=== PATIENT | female | born 1960 | race Caucasian/White ===

== ENCOUNTER 2016-06-23 16:34 | Emergency (ER) | payer OTHER, MEDICAID ==
[2016-06-23] MEDS ORDERED: IBUPROFEN 600 MG TABLET PO STA (18:32)
[2016-06-23] MEDS ORDERED: IBUPROFEN 600 MG TABLET PO ONE (18:38)
== END 2016-06-23 18:52 | disposition home or self-care (01) ==
DX: S46.912A Strain of unspecified muscle, fascia and tendon at shoulder and upper arm level, left arm, initial encounter (principal); X50.1XXA Overexertion from prolonged static or awkward postures, initial encounter; Y93.F2 Activity, caregiving, lifting; Y92.129 Unspecified place in nursing home as the place of occurrence of the external cause; Y99.0 Civilian activity done for income or pay; I10 Essential (primary) hypertension; E11.9 Type 2 diabetes mellitus without complications; Z79.84 Long term (current) use of oral hypoglycemic drugs
CPT/HCPCS: 1040M; 99282; 99283; A9270

== ENCOUNTER 2017-11-02 16:12 | Observation (INO) | payer MEDICAID, OTHER ==
--- NOTE | 2017-11-02 17:03 | ED Physician Documentation ---
PD HPI HEADACHE - Stated complaint Stated Complaint: HEADACHE/DIZZY/N/V - Chief complaint Chief Complaint: Neuro - History obtained from History obtained from: Patient - History of Present Illness Timing - onset: Today Timing - onset during: Light activity (felt headache and light headed this morning, worse with activity and standing up. [place] generally weak. Nauseated and had emesis when got to work that was cofeeground/maroon. 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 (feeling more of a pressure headache.) Location: Front Quality: Throbbing, Tightness. No: Thunderclap Associated symptoms: Nausea, Vomiting (she did have emesis of coffeeground material today and then another emesis similar to brick red color.), Weakness. No: Fever, Stiff neck, Numbness, Syncope Worsened by: No: Light, Noise Contributing factors: Other (her coworker found her BP to be low at 60 systolic. ). No: Anticoagulated, Recent illness, Trauma Similar symptoms before: Has not had sx before Recently seen: Not recently seen (no recent change in meds) Review of Systems Constitutional: reports: Fatigue (today). denies: Fever, Chills, Myalgias Nose: denies: Rhinorrhea / runny nose, Congestion Throat: denies: Sore throat Cardiac: denies: Chest pain / pressure, Palpitations Respiratory: denies: Dyspnea, Cough GI: reports: Nausea, Vomiting, Hematemesis. denies: Abdominal Pain, Abdominal Swelling, Constipation, Diarrhea, Bloody / black stool : denies: Dysuria, Frequency Skin: denies: Rash, Lesions Neurologic: reports: Generalized weakness. denies: Focal weakness, Numbness, Difficulty speaking, Near syncope Psychiatric: denies: Anxiety Endocrine: denies: Weight loss, Weight gain Immunocompromised: denies: Immunocompromised PD PAST MEDICAL HISTORY - Past Medical History Cardiovascular: Hypertension Respiratory: None Endocrine/Autoimmune: Type 2 diabetes GI: None PIPE LAYER: None : None HEENT: None Psych: None Musculoskeletal: None Derm: None - Past Surgical History Past Surgical History: Yes - Present Medications Home Medications: Ambulatory Orders Medication Instructions Recorded Confirmed Lisinopril 10 mg PO DAILY 08/17/14 06/23/16 Simvastatin [Zocor] 40 mg PO DAILY 08/17/14 06/23/16 metFORMIN [Glucophage] 500 mg PO BID 01/27/15 06/23/16 Naproxen 375 mg PO BID #20 tablet 08/26/15 06/23/16 - Allergies Allergies/Adverse Reactions: Allergies Allergy/AdvReac Type Severity Reaction Status Date / Time influenza virus vaccine, Allergy Severe Anaphylaxis Verified 08/26/15 19:14 specific [influenza virus vacc,specific] - Social History Does the pt smoke?: No Smoking Status: Never smoker Does the pt drink ETOH?: No Does the pt have substance abuse?: No - Immunizations Immunizations are current?: Yes - POLST Patient has POLST: No PD ED PE NORMAL - Vitals Vital signs reviewed: Yes (BP initially low, and improved with IV fluids. ) - General General: Alert and oriented X 3, No acute distress, Well developed/nourished - HEENT HEENT: Ears normal, Moist mucous membranes, Pharynx benign - Neck Neck: Supple, no meningeal sign, No adenopathy - Cardiac Cardiac: No murmur. No: RRR (regular but tachycardic. ) - Respiratory Respiratory: Clear bilaterally - Abdomen Abdomen: Normal bowel sounds, Soft, Non tender, Non distended, No organomegaly, Other (emesis she had earlier IT SUPPORT MANAGER was brought with her and it is coffeeground to brick colored and gastroccult very positive. ) - Female Female : Deferred - Rectal Rectal: Deferred - Back Back: No CVA TTP - Derm Derm: Warm and dry. No: Normal color (mild pallor) - Extremities Extremities: No deformity, No tenderness to palpate, Normal ROM s pain, No edema - Neuro Neuro: Alert and oriented X 3, No motor deficit, Normal speech Eye Opening: Spontaneous Motor: Obeys Commands Verbal: Oriented GCS Score: 15 - Psych Psych: Normal mood, Normal affect Results - Vitals Vitals: Vital Signs - 24 hr 11/02/17 11/02/17 11/02/17 16:29 17:34 18:18 Temperature 35.7 C L Heart Rate 107 H 88 92 Heart Rate [ Sitting] Heart Rate [ Standing] Respiratory 18 14 19 Rate Blood Pressure 75/59 L 95/70 89/58 L Blood Pressure [Sitting] Blood Pressure [Standing] O2 Saturation 100 98 100 06/19/18 06/19/18 06/19/18 18:33 18:35 19:03 Temperature Heart Rate 88 102 H 102 H Heart Rate [ Sitting] Heart Rate [ Standing] Respiratory 15 15 15 Rate Blood Pressure 94/62 119/67 Blood Pressure [Sitting] Blood Pressure [Standing] O2 Saturation 98 99 11/02/17 11/02/17 19:37 19:53 Temperature Heart Rate 102 H Heart Rate [ 107 H Sitting] Heart Rate [ 108 H Standing] Respiratory 18 Rate Blood Pressure 95/57 L Blood Pressure 96/64 [Sitting] Blood Pressure 86/60 L [Standing] O2 Saturation 100 Oxygen O2 Source Room air - Labs Labs: Laboratory Tests 11/02/17 11/02/17 11/02/17 16:45 16:45 16:45 WBC 12.2 H RBC 4.52 Hgb 9.9 L Hct 30.8 L MCV 68.0 L MCH 21.9 L MCHC 32.3 RDW 16.0 H Plt Count 285 MPV 8.0 Neut # (Auto) 10.8 H Lymph # (Auto) 0.4 L Catron # (Auto) 0.8 Eos # (Auto) 0.1 Baso # (Auto) 0.0 Absolute Nucleated RBC 0.00 Nucleated RBC % 0.0 Platelet Estimate NORMAL (130-450,000) Platelet Morphology NORMAL APPEARANCE RBC Morph Micro Appear 1+ HYPOCHROMASIA D-Dimer Sodium 132 L Potassium 6.6 H* Chloride 102 Carbon Dioxide 21 Anion Gap 9.0 BUN 65 H Creatinine 1.9 H Estimated GFR (MDRD) 27 L Glucose 323 H Calcium 8.5 Total Bilirubin 0.6 AST 24 ALT 19 Alkaline Phosphatase 74 Troponin I B-Natriuretic Peptide Total Protein 6.8 Albumin 3.9 Globulin 2.9 Albumin/Globulin Ratio 1.3 Lipase 36 Blood Type AB POSITIVE Blood Type Recheck Antibody Screen NEGATIVE 11/02/17 11/02/17 11/02/17 16:45 16:45 16:45 WBC RBC Hgb Hct MCV MCH MCHC RDW Plt Count MPV Neut # (Auto) Lymph # (Auto) Catron # (Auto) Eos # (Auto) Baso # (Auto) Absolute Nucleated RBC Nucleated RBC % Platelet Estimate Platelet Morphology RBC Morph Micro Appear D-Dimer < 200.0 L Sodium Potassium Chloride Carbon Dioxide Anion Gap BUN Creatinine Estimated GFR (MDRD) Glucose Calcium Total Bilirubin AST ALT Alkaline Phosphatase Troponin I < 0.04 B-Natriuretic Peptide 16 Total Protein Albumin Globulin Albumin/Globulin Ratio Lipase Blood Type Blood Type Recheck Antibody Screen 11/02/17 11/02/17 18:30 18:30 WBC RBC Hgb Hct MCV MCH MCHC RDW Plt Count MPV Neut # (Auto) Lymph # (Auto) Catron # (Auto) Eos # (Auto) Baso # (Auto) Absolute Nucleated RBC Nucleated RBC % Platelet Estimate Platelet Morphology RBC Morph Micro Appear D-Dimer Sodium Potassium 5.0 Chloride Carbon Dioxide Anion Gap BUN Creatinine Estimated GFR (MDRD) Glucose Calcium Total Bilirubin AST ALT Alkaline Phosphatase Troponin I B-Natriuretic Peptide Total Protein Albumin Globulin Albumin/Globulin Ratio Lipase Blood Type Blood Type Recheck AB POSITIVE Antibody Screen - Rads (name of study) head CT Radiology: Prelim report reviewed (normal) PD MEDICAL DECISION MAKING - ED course Complexity details: reviewed results, re-evaluated patient, considered differential (initial presentation was of headache, and this improved with IV fluids with improved BP. Main issue is really the cause of the hypotention, in my view of it. No signs of cardiovascular process. She did have coffeeground emesis but no diarrhea. Consider acute UGI bleed as most likely. ), d/w patient , d/w lactation consultant (Kati Arroyo, neighborhood conservation officer for surgery, who felt patient to be having IV fluids, repeat vitals and blood count and he would scope her tomorrow. Defers to Hospitalist. ), other (s/w Hospitalist, who will see patient in the ER. ) - Sepsis Event Vital Signs: Vital Signs - 24 hr 11/02/17 11/02/17 11/02/17 16:29 17:34 18:18 Temperature 35.7 C L Heart Rate 107 H 88 92 Heart Rate [ Sitting] Heart Rate [ Standing] Respiratory 18 14 19 Rate Blood Pressure 75/59 L 95/70 89/58 L Blood Pressure [Sitting] Blood Pressure [Standing] O2 Saturation 100 98 100 11/02/17 11/02/17 11/02/17 18:33 18:35 19:03 Temperature Heart Rate 88 102 H 102 H Heart Rate [ Sitting] Heart Rate [ Standing] Respiratory 15 15 15 Rate Blood Pressure 94/62 119/67 Blood Pressure [Sitting] Blood Pressure [Standing] O2 Saturation 98 99 11/02/17 11/02/17 19:37 19:53 Temperature Heart Rate 102 H Heart Rate [ 107 H Sitting] Heart Rate [ 108 H Standing] Respiratory 18 Rate Blood Pressure 95/57 L Blood Pressure 96/64 [Sitting] Blood Pressure 86/60 L [Standing] O2 Saturation 100 Oxygen O2 Source Room air Departure - Departure Disposition: ED Place in Observation Clinical Impression: Upper GI bleed, Orthostatic headache, Renal insufficiency Hypotension Qualifiers: Hypotension type: orthostatic hypotension Qualified Code(s): I95.1 - Orthostatic hypotension Condition: Stable Record reviewed to determine appropriate education?: Yes Discharge Date/Time: 11/02/17 20:46
--- NOTE | 2017-11-02 17:22 | CT Report ---
Procedure Date: 11/02/2017 Accession Number: [id number] / [id number] Procedure: CT - Head W/O CPT Code: FULL RESULT: EXAM: CT HEAD WITHOUT CONTRAST EXAM DATE: 11/02/2017 04:59 PM. CLINICAL HISTORY: Headache (severe). COMPARISON: None. TECHNIQUE: Multiaxial CT images were obtained from the foramen magnum to the vertex. Reformats: Coronal. IV contrast: None. In accordance with CT protocol optimization, one or more of the following dose reduction techniques were utilized for this exam: automated exposure control, adjustment of mA and/or KV based on patient size, or use of iterative reconstructive technique. FINDINGS: Parenchyma: No intraparenchymal hemorrhage. No evidence of mass, midline shift, or CT findings of infarction. Chaves-white differentiation is distinct. Extraaxial Spaces: Normal for age. No subdural or epidural collections identified. Ventricles: Normal in size and position. Sinuses and Orbits: Imaged paranasal sinuses, orbits, and mastoids show no significant abnormality. Bones: No evidence of fracture or calvarial defect. Other: None. IMPRESSION: Normal head CT. RADIA
[2017-11-02] MEDS ORDERED: SODIUM CHLORIDE 0.9% 1,000 ML IV ONE ×3 (17:32→19:36)
[2017-11-02] MEDS ORDERED: ACETAMINOPHEN 1,000 MG/100 ML 100 ML IV STA (17:32)
[2017-11-02] MEDS ORDERED: ONDANSETRON 4 MG/2 ML VIAL IVP STA (17:32)
[2017-11-02] MEDS ORDERED: FAMOTIDINE 20 MG/50 ML 50 ML IV ONE (17:32)
[2017-11-02 17:42] LABS: BASOPHILS % (AUTO) 0.4 %; EOSINOPHILS # (AUTO) 0.1 10^3/uL (0.0-0.7); EOSINOPHILS % (AUTO) 0.8 %; HGB - HEMOGLOBIN 9.9 g/dL (12.0-16.0); LYMPHOCYTES # (AUTO) 0.4 10^3/uL (1.5-3.5); LYMPHOCYTES % (AUTO) 3.3 %; MEAN CORPUSCULAR HEMOGLOBIN 21.9 pg (27.0-31.0); MEAN CORPUSCULAR HGB CONC 32.3 g/dL (32.0-36.0); MONOCYTES # (AUTO) 0.8 10^3/uL (0.0-1.0); MONOCYTES % (AUTO) 6.6 %; NEUTROPHILS # (AUTO) 10.8 10^3/uL (1.5-6.6); NEUTROPHILS % (AUTO) 88.9 %; PLT - PLATELET COUNT 285 10^3/uL (130-450); RED BLOOD COUNT 4.52 10^6/uL (4.20-5.40); WHITE BLOOD COUNT 12.2 x10^3/uL (4.8-10.8)
[2017-11-02 17:56] LABS: ALBUMIN 3.9 g/dL (3.2-5.5); ALBUMIN/GLOBULIN RATIO 1.3 (1.0-2.2); BILIRUBIN,TOTAL 0.6 mg/dL (0.2-1.0); CALCIUM 8.5 mg/dL (8.5-10.3); CREATININE 1.9 mg/dL (0.4-1.0); TOTAL PROTEIN 6.8 g/dL (6.7-8.2)
[2017-11-02] MEDS ORDERED: ALBUTEROL NEB 2.5 MG/3 ML INH STA (18:01)
[2017-11-02] MEDS ORDERED: SODIUM BICARBONATE ABBOJECT 50 MEQ/50 ML SYRINGE IVP STA (18:01)
[2017-11-02] MEDS ORDERED: INSULIN REGULAR HUMAN 100 UNIT/1 ML 10 ML MDV IVP STA (18:01)
[2017-11-02 18:46] LABS: PLATELET ESTIMATE, MANUAL NORMAL (130-450,000) (NORMAL); PLATELET MORPHOLOGY NORMAL APPEARANCE (NORMAL)
[2017-11-02] MEDS ORDERED: PANTOPRAZOLE 40 MG VIAL IVP STA (19:37)
[2017-11-02] MEDS ORDERED: MORPHINE 2 MG/ML SYRINGE IVP PRN (20:01)
[2017-11-02] MEDS ORDERED: metFORMIN 500 MG TABLET PO SCH (21:00)
[2017-11-02] MEDS ORDERED: FAMOTIDINE 20 MG/50 ML 50 ML IV SCH (21:00)
[2017-11-02] MEDS: D5.45NS W/20 MEQ KCL 1,000 ML IV SCH (22:33)
--- NOTE | 2017-11-02 23:37 | HISTORY & PHYSICAL EXAMINATION ---
Chief Complaint - Chief Complaint Chief Complaint: Headache, nausea, vomiting History of Present Illness - Admitted From Admitted From:: home - History Obtained From History obtained from: patient, ED physician - History of Present Illness HPI Comment/Other: Ms. Karen Merino is a very pleasant 56-year-old female who has a history of waking up this morning with bad headache. She took Tylenol but this did not work. The patient was also nauseous but initially was able to keep her vomiting. Unfortunately she did become sick to her stomach and vomited a few hours later. She came to the emergency department for workup and was subsequently found to have an upper GI bleed as evidenced by coffee-ground emesis. She will be admitted to the hospital in observation bed, correct her electrolyte abnormalities, and she will undergo endoscopy with Dr. Dav Arroyo tomorrow. 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 Living arrangement: At home Living Situation: With family Social History Notes: The patient lives with her daughter - Substance History Use: Uses substance without health or social issues: Alcohol Abuse: Recurrent use of substance despite neg consequences: NONE Dependence: Experiences withdrawal or developed tolerances: NONE - POLST Patient has POLST: No POLST Status: Full Code Meds/Allgy - Home Medications Home Medications: Ambulatory Orders Medication Instructions Recorded Confirmed Lisinopril 10 mg PO DAILY 08/17/14 06/23/16 Simvastatin [Zocor] 40 mg PO DAILY 08/17/14 06/23/16 metFORMIN [Glucophage] 500 mg PO BID 01/27/15 06/23/16 Naproxen 375 mg PO BID #20 tablet 08/26/15 06/23/16 - Allergies Allergies/Adverse Reactions: Allergies Allergy/AdvReac Type Severity Reaction Status Date / Time influenza virus vaccine, Allergy Severe Anaphylaxis Verified 08/26/15 19:14 specific [influenza virus vacc,specific] Review of Systems - Constitutional Constitutional: reports: Fatigue, Poor appetite. denies: Fever, Chills, Night sweats - Eyes Eyes: denies: Pain, Irritation, Amaurosis, Blurred vision, Dipolpia - Ears, Nose & Throat Ears, Nose & Throat: denies: Ear pain, Hearing loss, Hearing aids, Tinnitus, Vertigo, Nasal pain, Nasal discharge - Cardiovascular Cariovascular: denies: Irregular heart rate, Palpitations, Chest pain, Edema, Syncope - Respiratory Respiratory: denies: Cough, Sputum production, Wheezing, Snoring - Gastrointestinal Gastrointestinal: reports: Nausea, Vomiting. denies: Abdominal pain, Abdominal distention, Constipation, Diarrhea, Change in bowel habits, Rectal bleeding - Genitourinary Genitourinary: denies: Dysuria, Frequency, Urgency, Hematuria - Musculoskeletal Musculoskeletal: denies: Muscle pain, Back pain, Muscle aches, Stiffness - Integumentary Integumentary: denies: Rash, Pruritis, Lesions, Dryness - Neurological Neurological: reports: Headache - Psychiatric Psychiatric: denies: Depression, Anxiety, Suicidal - Endocrine Endocrine: denies: Polyuria, Polydypsia, Polyphagia - Hematologic/Lymphatic Hematologic/Lymphatic: denies: Anemia, Bruising, Petechiae, Lymphadenopathy - All Other Systems All Other Systems: reports: Reviewed and negative Exam - Vital Signs Reviewed Vital Signs: Yes Vital Signs: Vital Signs x48h Temp Pulse Pulse Resp BP BP Pulse Ox 11/02/17 20:49 36.4 C L 92 15 88/47 L 99 11/02/17 20:43 93 18 94/59 L 95 11/02/17 20:02 97 19 107/66 98 - Physical Exam General Appearance: positive: No acute distress, Alert Eyes Bilateral: positive: Normal inspection, PERRL, EOMI, No lid inflammation, Conjunctivae nml, No scleral icterus ENT: positive: ENT inspection nml, Pharynx nml, No signs of dehydration Neck: positive: Nml inspection, Thyroid nml, No JVD, Trachea midline. negative : Thyromegaly Respiratory: positive: Chest non-tender, No respiratory distress, Breath sounds nml. negative: Wheezes, Rales, Rhonchi Cardiovascular: positive: Regular rate & rhythm, No murmur, No gallop Peripheral Pulses: positive: 1+ Abdomen: positive: Non-tender, No organomegaly, Nml bowel sounds, No distention. negative: Guarding, Rebound Back: positive: Nml inspection. negative: CVA tenderness (R), CVA tenderness (L ) Skin: positive: Color nml, No rash, Warm, Dry. negative: Cyanosis Extremities: positive: Non-tender, Full ROM, Nml appearance, No pedal edema Neurologic/Psychiatric: positive: Oriented x3, CN's nml (2-12), Motor nml, Sensation nml, Mood/affect nml Conclusion/Plan - Problem List (1) Upper GI bleed Conclusion/Plan: As evidenced by coffee-ground emesis and Hemoccult testing, the patient will undergo endoscopy with Dr. Dav Arroyo tomorrow.She is currently n.p.o. (2) History of hypertension Conclusion/Plan: The patient's blood pressure has been on the low side since her admission, but is 101/58 this morning. We have restarted the patient on her home antihypertensives and will continue to monitor. (3) Type 2 diabetes mellitus Conclusion/Plan: The Patient has a history of type 2 diabetes but only takes metformin 500 mg twice a day. We will restart her on that dosage and will monitor her glucose levels. If necessary we will put her on a sliding scale. (4) Hyperlipidemia Conclusion/Plan: We will restart the patient on her simvastatin. (5) Anemia Conclusion/Plan: The patient's hemoglobin is 9.9. On her last admission hemoglobin was 8.0. We will monitor her closely and obtain iron studies as her red blood cells are microcytic.We will also check her B12 and folate levels as she has a large RDW.Of note is that the patient has an elevated creatinine and this may be renal based. Qualifiers: Other causes of anemia: enzyme D/O, other - Lab Results Lab results reviewed: Yes Fish Bones: 11/02/17 16:45 11/02/17 18:30 - Diagnostic Imaging Results Diagnostic Imaging Results: positive: Final report reviewed Diagnostic Imaging Results Comments: EXAM: CT HEAD WITHOUT CONTRAST EXAM DATE: 11/02/2017 04:59 PM. CLINICAL HISTORY: Headache (severe). COMPARISON: None. TECHNIQUE: Multiaxial CT images were obtained from the foramen magnum to the vertex. Reformats: Coronal. IV contrast: None. In accordance with CT protocol optimization, one or more of the following dose reduction techniques were utilized for this exam: automated exposure control, adjustment of mA and/or KV based on patient size, or use of iterative reconstructive technique. FINDINGS: Parenchyma: No intraparenchymal hemorrhage. No evidence of mass, midline shift, or CT findings of infarction. Chaves-white differentiation is distinct. Extraaxial Spaces: Normal for age. No subdural or epidural collections identified. Ventricles: Normal in size and position. Sinuses and Orbits: Imaged paranasal sinuses, orbits, and mastoids show no significant abnormality. Bones: No evidence of fracture or calvarial defect. Other: None. IMPRESSION: Normal head CT. Core Measures - Anticipated LOS I expect patient to be DC'd or transferred within 96 hours.: Yes - DVT/VTE - Prophylaxis VTE/DVT Device ordered at admit?: Yes
[2017-11-03 06:51] LABS: CALCIUM 7.3 mg/dL (8.5-10.3); CREATININE 1.2 mg/dL (0.4-1.0)
[2017-11-03 07:00] LABS: % IRON SATURATION 9 % (20-50); IRON 17 ug/dL (28-170); TOTAL IRON BINDING CAPACITY 186 ug/dL (250-450); TRANSFERRIN 133 mg/dL (192-382)
[2017-11-03 07:04] LABS: HGB - HEMOGLOBIN 8.1 g/dL (12.0-16.0); MEAN CORPUSCULAR HEMOGLOBIN 22.1 pg (27.0-31.0); MEAN CORPUSCULAR HGB CONC 32.4 g/dL (32.0-36.0); MEAN CORPUSCULAR VOLUME 68.3 fL (81.0-99.0); MEAN PLATELET VOLUME 7.1 fL (7.9-10.8); RED BLOOD COUNT 3.66 10^6/uL (4.20-5.40); RED CELL DISTRIBUTION WIDTH 16.3 % (12.0-15.0); WHITE BLOOD COUNT 5.2 x10^3/uL (4.8-10.8)
--- NOTE | 2017-11-03 08:49 | CONSULTATION NOTE ---
Referring Provider Name of Referring Provider:: Dr. Corral Consult Date: 11/03/17 Chief Complaint - Chief Complaint Chief Complaint: ACOSTA and coffee ground hematemesis History of Present Illness - Admitted From Admitted From:: ER - History Obtained From Records Reviewed: yes History obtained from: pt Exam Limitations: none - History of Present Illness HPI Comment/Other: 56 yo female in her usual state of health until yesterday morning when she note a progressively worsening headache, followed by dizziness, and then an episode of coffee ground hematemesis while at work. There has been no abdominal pain, fever, chills, change in bowel habits, melena or hematochezia. She reports a prior hx of what she was told was an ulcer many years ago which responded to medication. No prior GI evaluations. Rare use of NSAIDs for headache, rare use of alcohol. No tobacco use. Neg FH GI tumors. No recent wt loss. She presented to the ER where evaluation was notable for hypotension and anemia. She responded to fluid resuscitation with several liters of crystalloid, and remained stable therafter. She had no further emesis. Head CT was neg. She feels much better today, with no recurrent sx and no bm's. 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 denies : Colonoscopy, EGD - Family & Social History Family History: Mother: , CVA/TIA, Father: , COPD/Emphysema, Other family: Diabetes, Type 2 (Multiple family members) Family History Comment/Other: Patient states there is no known history of heart disease or cancer in the family but there is a history of diabetes. Neg FH GI tumors. Living arrangement: At home Living Situation: With family Social History Notes: The patient lives with her daughter - Substance History Use: Uses substance without health or social issues: Alcohol (minimal use, less than once a month) Abuse: Recurrent use of substance despite neg consequences: NONE Dependence: Experiences withdrawal or developed tolerances: NONE - POLST Patient has POLST: No POLST Status: Full Code Meds/Allgy - Home Medications Home Medications: Ambulatory Orders Medication Instructions Recorded Confirmed Lisinopril 10 mg PO DAILY 08/17/14 06/23/16 Simvastatin [Zocor] 40 mg PO DAILY 08/17/14 06/23/16 metFORMIN [Glucophage] 500 mg PO BID 01/27/15 06/23/16 - Allergies Allergies/Adverse Reactions: Allergies Allergy/AdvReac Type Severity Reaction Status Date / Time influenza virus vaccine, Allergy Severe Anaphylaxis Verified 08/26/15 19:14 specific [influenza virus vacc,specific] Review of Systems - Constitutional Constitutional: denies: Fever, Chills, Poor appetite, Weight loss - Cardiovascular Cariovascular: reports: Lightheadedness (yesterday). denies: Irregular heart rate, Palpitations, Chest pain, Exertional dyspnea - Respiratory Respiratory: denies: Cough, Sputum production, Wheezing, Hemoptysis, SOB at rest , SOB with exertion - Gastrointestinal Gastrointestinal: reports: Nausea, Vomiting, Coffee grounds emesis. denies: Abdominal pain, Abdominal distention, Constipation, Diarrhea, Change in bowel habits, Rectal bleeding, Black stools, Bloody stools, Michael blood emesis, Reflux /heartburn, Bloating, Poor appetite - Hematologic/Lymphatic Hematologic/Lymphatic: denies: Anemia, Bruising, Petechiae, Blood clots, Bleeding tendencies - All Other Systems All Other Systems: reports: Reviewed and negative Exam - Vital Signs Reviewed Vital Signs: Yes Vital Signs: Vital Signs x48h Temp Pulse Resp BP Pulse Ox 11/03/17 08:43 36.8 C 86 16 119/52 L 99 11/03/17 05:11 36.8 C 83 18 101/58 L 97 - Physical Exam General Appearance: positive: No acute distress, Alert Eyes Bilateral: positive: Normal inspection, Conjunctivae nml, No scleral icterus ENT: positive: ENT inspection nml, Pharynx nml, No signs of dehydration Neck: positive: Nml inspection, No JVD. negative: Lymphadenopathy (R), Lymphadenopathy (L) Respiratory: positive: Chest non-tender, No respiratory distress, Breath sounds nml. negative: Wheezes, Rales, Rhonchi Cardiovascular: positive: Regular rate & rhythm, No murmur, No gallop Abdomen: positive: Non-tender, No organomegaly, Nml bowel sounds, No distention. negative: Guarding, Rebound, Hepatomegaly, Splenomegaly, Mass Skin: positive: Color nml, Warm, Dry. negative: Cyanosis Extremities: positive: Non-tender, No pedal edema, Calf tenderness (mild, on right) Neurologic/Psychiatric: positive: Oriented x3 Conclusion/Plan - Diagnosis Diagnosis: 1. Hematemesis; single episode, with no clinical signs of active bleeding at present; ddx includes PUD, gastritis, H. pylori, UGI neoplasm, GERD , diulafoy lesion, varices, etc. 2. Anemia, likely due to iron deficiency, suggest possible ongoing problem with occult gi bleeding, from upper or lower gi sources. - Plan Plan: EGD today. PAR conf with pt. If unremarkable, pt should also have a colonoscopy. Empiric treatment with PPI therapy is warranted pending EGD. - Lab Results Lab results reviewed: Yes Fish Bones: 11/03/17 06:30 11/03/17 06:30 Other Lab Results: LFTs nl; iron studies suggest iron deficiency anemia - EKG Results EKG Interpreted Independently: No EKG Findings: Sinus tach with VR 100
[2017-11-03 09:24] LABS: INR 1.2 (0.8-1.2); PT - PROTHROMBIN TIME 13.5 secs (9.9-12.6)
[2017-11-03 09:40] LABS: HB2 TOTAL 8.6 g/dL; HEMOGLOBIN A1C 0.45 g/dL; HEMOGLOBIN A1C % 6.9 % (4.6-6.2)
[2017-11-03] MEDS: SODIUM CHLORIDE FLUSH 0.9% 10 ML SYRINGE IVP SCH ×3 (09:49→18:33)
[2017-11-03] MEDS: FERROUS SULFATE 325 MG TABLET PO SCH ×2 (09:50→18:33)
[2017-11-03] MEDS: D5.45NS W/20 MEQ KCL 1,000 ML IV SCH (09:50)
[2017-11-03] MEDS: POLYETHYLENE GLYCOL 3350 17 GM PACKET PO SCH (09:51)
[2017-11-03] MEDS: LISINOPRIL 5 MG TABLET PO SCH (09:51)
[2017-11-03] MEDS: PANTOPRAZOLE 40 MG VIAL IVP SCH ×2 (09:54→21:02)
[2017-11-03] MEDS: SODIUM CHLORIDE FLUSH 0.9% 10 ML SYRINGE IVP PRN ×2 (09:55→21:02)
[2017-11-03] MEDS: INSULIN REGULAR HUMAN 100 UNIT/1 ML 10 ML MDV SUBQ SCH ×2 (13:08→19:19)
--- NOTE | 2017-11-03 14:33 | PROVIDER PROGRESS NOTE ---
Subjective - Prog Note Date Prog Note Date: 11/03/17 - Subjective Pt reports feeling: No change Subjective: pt report once of vomiting of blood in her work place yesterday, no other complaints. No chest pain, SOB, dizziness, fever, chill, cough. No abdominal pain, N/V/D. pt will have EGD on this afternoon, will follow up Current Medications - Current Medications Current Medications: Active Medications Ferrous Sulfate (Feosol) 325 mg PO BIDWM [facility] Last Admin: 11/03/17 09:50 Dose: Not Given Potassium Chloride/Dextrose/Sod Cl (D5.45ns W/20 Meq Kcl) 1,000 mls @ 100 mls/ hr IV .Q10H [facility] Last Admin: 11/03/17 09:50 Dose: 100 mls/hr Insulin Human Regular (Novolin R) 1 - 5 unit SUBQ Q6HR [facility] PRN Reason: Protocol Last Admin: 11/03/17 13:08 Dose: Not Given Lisinopril (Zestril) 10 mg PO DAILY [facility] Last Admin: 11/03/17 09:51 Dose: 10 mg Morphine Sulfate (Morphine) 2 mg IVP Q2H PRN PRN Reason: Pain 8 to 10 Pantoprazole Sodium (Protonix) 40 mg IVP BID [facility] Last Admin: 11/03/17 09:54 Dose: 40 mg Polyethylene Glycol (Miralax) 17 gm PO DAILY [facility] Last Admin: 11/03/17 09:51 Dose: Not Given Sodium Chloride (Normal Saline Flush 0.9%) 10 ml IVP PRN PRN PRN Reason: NEEDED PER PROVIDER ORDERS Last Admin: 11/03/17 09:55 Dose: 10 ml Sodium Chloride (Normal Saline Flush 0.9%) 10 ml IVP 0100,0900,1700 [facility] Last Admin: 11/03/17 09:50 Dose: Not Given Lisinopril 10 mg PO DAILY 08/17/14 Simvastatin [Zocor] 40 mg PO DAILY 08/17/14 metFORMIN [Glucophage] 500 mg PO BID 01/27/15 Objective - Vital Signs/Intake & Output Reviewed Vital Signs: Yes Vital Signs: Vital Signs x48h Temp Pulse Resp BP BP Pulse Ox 11/03/17 12:56 36.3 C L 81 16 119/61 97 11/03/17 08:43 36.8 C 86 16 119/52 L 99 Intake & Output: Intake & Output 10/31/17 11/01/17 11/02/17 11/03/17 23:59 23:59 23:59 23:59 Intake Total 2049 1000 Output Total 1400 Balance 2049 - - Objective General Appearance: positive: No acute distress, Alert. negative: Lethargic Eyes Bilateral: positive: Normal inspection, PERRL, No lid inflammation, Conjunctivae nml ENT: positive: ENT inspection nml, Pharynx nml, No signs of dehydration. negative: Purulent nasal drainage, Pharyngeal erythema, Oral lesions Neck: positive: Nml inspection, Thyroid nml, No JVD, Trachea midline. negative : Thyromegaly, Lymphadenopathy (R), Lymphadenopathy (L), Stiff neck, Swelling/ bruising, Tracheal deviation Respiratory: positive: Chest non-tender, No respiratory distress, Breath sounds nml. negative: Wheezes, Rales, Rhonchi Cardiovascular: positive: Regular rate & rhythm, No murmur, No gallop. negative : Irregularly irregular, Extrasystoles, Tachycardia, Bradycardia, JVD present, Systolic murmur, Diastolic murmur Peripheral Pulses: 2+ Radial (R), 2+ Radial (L), 2+ Dorsalis pedis (R), 2+ Dorsalis pedis (L) Abdomen: positive: Non-tender, No organomegaly, Nml bowel sounds, No distention. negative: Tenderness, Guarding, Rebound Back: positive: Nml inspection. negative: CVA tenderness (R), CVA tenderness (L ) Skin: positive: Color nml, No rash, Warm, Dry. negative: Cyanosis, Diaphoresis , Pallor Extremities: positive: Non-tender, Full ROM, Nml appearance. negative: Pedal edema, Calf tenderness, Joint swelling, Rosa Maria's sign/cords Neurologic/Psychiatric: positive: Oriented x3, Motor nml, Sensation nml, Mood/ affect nml. negative: Weakness, Sensory loss, Facial droop, Slurred/abnml speech, Depressed mood/affect - Lab Results Fish Bones: 11/03/17 06:30 11/03/17 06:30 Other Labs: Lab Results x24hrs 11/03/17 11/03/17 11/03/17 Range/Units 12:53 08:40 06:30 WBC (4.8-10.8) x10^3/uL RBC (4.20-5.40) 10^6/uL Hgb (12.0-16.0) g/dL Hct (37.0-47.0) % MCV (81.0-99.0) fL MCH (27.0-31.0) pg MCHC (32.0-36.0) g/dL RDW (12.0-15.0) % Plt Count (130-450) 10^3/uL MPV (7.9-10.8) fL PT 13.5 H (9.9-12.6) secs INR 1.2 (0.8-1.2) Sodium (135-145) mmol/L Potassium (3.5-5.0) mmol/L Chloride (101-111) mmol/L Carbon Dioxide (21-32) mmol/L Anion Gap (6-13) BUN (6-20) mg/dL Creatinine (0.4-1.0) mg/dL Estimated GFR (MDRD) (>89) Glucose (70-100) mg/dL POC Whole Bld Glucose 140 H (70 - 100) mg/dL Glycated Hemoglobin (4.6-6.2) % Estim Average Glucose (70-100) Calcium (8.5-10.3) mg/dL Iron (28-170) ug/dL TIBC (250-450) ug/dL % Saturation (20-50) % Transferrin (192-382) mg/dL Vitamin B12 732 (180-914) pg/mL Folate 28.00 (5.90 - >24.8) ng/mL 11/03/17 11/03/17 11/03/17 Range/Units 06:30 06:30 06:30 WBC 5.2 (4.8-10.8) x10^3/uL RBC 3.66 L (4.20-5.40) 10^6/uL Hgb 8.1 L (12.0-16.0) g/dL Hct 24.9 L (37.0-47.0) % MCV 68.3 L (81.0-99.0) fL MCH 22.1 L (27.0-31.0) pg MCHC 32.4 (32.0-36.0) g/dL RDW 16.3 H (12.0-15.0) % Plt Count 213 (130-450) 10^3/uL MPV 7.1 L (7.9-10.8) fL PT (9.9-12.6) secs INR (0.8-1.2) Sodium 141 (135-145) mmol/L Potassium 4.2 (3.5-5.0) mmol/L Chloride 114 H (101-111) mmol/L Carbon Dioxide 21 (21-32) mmol/L Anion Gap 6.0 (6-13) BUN 36 H (6-20) mg/dL Creatinine 1.2 H (0.4-1.0) mg/dL Estimated GFR (MDRD) 47 L (>89) Glucose 113 H (70-100) mg/dL POC Whole Bld Glucose (70 - 100) mg/dL Glycated Hemoglobin (4.6-6.2) % Estim Average Glucose (70-100) Calcium 7.3 L (8.5-10.3) mg/dL Iron 17 L (28-170) ug/dL TIBC 186 L (250-450) ug/dL % Saturation 9 L (20-50) % Transferrin 133 L (192-382) mg/dL Vitamin B12 (180-914) pg/mL Folate (5.90 - >24.8) ng/mL //18 Range/Units 06:20 WBC (4.8-10.8) x10^3/uL RBC (4.20-5.40) 10^6/uL Hgb (12.0-16.0) g/dL Hct (37.0-47.0) % MCV (81.0-99.0) fL MCH (27.0-31.0) pg MCHC (32.0-36.0) g/dL RDW (12.0-15.0) % Plt Count (130-450) 10^3/uL MPV (7.9-10.8) fL PT (9.9-12.6) secs INR (0.8-1.2) Sodium (135-145) mmol/L Potassium (3.5-5.0) mmol/L Chloride (101-111) mmol/L Carbon Dioxide (21-32) mmol/L Anion Gap (6-13) BUN (6-20) mg/dL Creatinine (0.4-1.0) mg/dL Estimated GFR (MDRD) (>89) Glucose (70-100) mg/dL POC Whole Bld Glucose (70 - 100) mg/dL Glycated Hemoglobin 6.9 H (4.6-6.2) % Estim Average Glucose 151 H (70-100) Calcium (8.5-10.3) mg/dL Iron (28-170) ug/dL TIBC (250-450) ug/dL % Saturation (20-50) % Transferrin (192-382) mg/dL Vitamin B12 (180-914) pg/mL Folate (5.90 - >24.8) ng/mL ABX Reporting Has patient been on IV antibiotics over the past 48 hours?: No Assessment/Plan - Problem List (1) Upper GI bleed Impression: Conclusion/Plan: 11/03, no more upper GI bleed, no abdominal pain. Pt was remotely hx of gastric ulcer. Pt does not recently take NSAIDs or alcohol drinking. follow up EGD protonix BID FRANKIE test IVF As evidenced by coffee-ground emesis and Hemoccult testing, the patient will undergo endoscopy with Dr. Dav Arroyo tomorrow.She is currently n.p.o. (2) History of hypertension Conclusion/Plan: 11/03 stable, continue Lisinoprol The patient's blood pressure has been on the low side since her admission, but is 101/58 this morning. We have restarted the patient on her home antihypertensives and will continue to monitor. (3) Type 2 diabetes mellitus Conclusion/Plan: hold metformin slide scale, ACHS hypoglycemia The Patient has a history of type 2 diabetes but only takes metformin 500 mg twice a day. We will restart her on that dosage and will monitor her glucose levels. If necessary we will put her on a sliding scale. (4) Hyperlipidemia Conclusion/Plan: We will restart the patient on her simvastatin. (5) iron deficiency Anemia Conclusion/Plan: 11/03, HGB 8.1, could be caused by acute blood loss. Iron study reveal iron deficiency and MCV is 68. pt is asymptomatic anemia start iron bid H&H type and screen, will transfusion blood as needed The patient's hemoglobin is 9.9. On her last admission hemoglobin was 8.0. We will monitor her closely and obtain iron studies as her red blood cells are microcytic.We will also check her B12 and folate levels as she has a large RDW.Of note is that the patient has an elevated creatinine and this may be renal based.
[2017-11-03] MEDS ORDERED: LACTATED RINGERS 1,000 ML IV ONE (15:03)
[2017-11-03] MEDS ORDERED: LIDO GARGLE 30 ML BOTTLE TOP ONE (15:10)
[2017-11-03] MEDS ORDERED: LIDO GARGLE 30 ML BOTTLE ONE (17:16)
[2017-11-03] MEDS ORDERED: LIDOCAINE-MPF 2% 5 ML VIAL IM ONE (17:20)
[2017-11-03] MEDS ORDERED: MIDAZOLAM 2 MG/2 ML VIAL IVP ONE (17:20)
[2017-11-03] MEDS ORDERED: PROPOFOL 1000 MG/100 ML IV ONE (17:20)
--- NOTE | 2017-11-03 17:39 | OPERATIVE REPORT ---
Operative Report - General Admit Date: 11/02/17 Procedure Date: 11/03/17 Planned Procedure: EGD Pre-Op Diagnosis: UGI bleed; iron deficiency anemia Procedure Performed: EGD with biopsy Post Op Diagnosis: Multiple gastric ulcers - Procedure Note Primary Surgeon: Dav Arroyo MD Anesthesia Provider: Jerry Mo CRNA Anesthesia Technique: Local, MAC Estimated Blood Loss (mL): 2 (ml) Complications: none - Other Other Information/Narrative: multiple serpiginous shallow nonbleeding ulcers in prepyloric antrum. Biopsies for path and H. pylori are pending. Rec: stop all NSAIDs, continue BID PPI therapy. Await biopsy report. Will need f/u EGD in 2 months to document satisfactory healing.
[2017-11-03 19:05] LABS: HGB - HEMOGLOBIN 8.6 g/dL (12.0-16.0)
[2017-11-03] MEDS: metFORMIN 500 MG TABLET PO SCH (22:30)
[2017-11-03] MEDS ORDERED: ACETAMINOPHEN 325 MG TABLET PO PRN (22:40)
[2017-11-03] MEDS ORDERED: ONDANSETRON ODT 4 MG TABLET TL PRN (22:40)
[2017-11-04] MEDS: INSULIN REGULAR HUMAN 100 UNIT/1 ML 10 ML MDV SUBQ SCH ×2 (00:46→07:05)
[2017-11-04] MEDS: SODIUM CHLORIDE FLUSH 0.9% 10 ML SYRINGE IVP SCH ×2 (00:46→08:10)
[2017-11-04 06:52] LABS: CALCIUM 8.1 mg/dL (8.5-10.3)
[2017-11-04 06:58] LABS: HGB - HEMOGLOBIN 8.7 g/dL (12.0-16.0); MEAN CORPUSCULAR HEMOGLOBIN 22.4 pg (27.0-31.0); MEAN CORPUSCULAR HGB CONC 33.2 g/dL (32.0-36.0); MEAN CORPUSCULAR VOLUME 67.5 fL (81.0-99.0); MEAN PLATELET VOLUME 7.2 fL (7.9-10.8); RED BLOOD COUNT 3.89 10^6/uL (4.20-5.40); RED CELL DISTRIBUTION WIDTH 16.1 % (12.0-15.0); WHITE BLOOD COUNT 11.2 x10^3/uL (4.8-10.8)
--- NOTE | 2017-11-04 07:24 | PROVIDER PROGRESS NOTE ---
Subjective - General Admit Date: 11/02/17 Procedure Date: 11/03/17 Post Op Days: 1 Procedure Performed: EGD with biopsies - Review of Systems General: positive: No symptoms HEENT: positive: Headaches Gastrointestinal: positive: No symptoms - Other Other Information/Narrative: No further N/V; no melena/hematochezia; no abd pain Objective - Patient Data Reviewed Vital Signs: Yes Vital Signs: Vital Signs x48h Temp Pulse Resp BP Pulse Ox 11/04/17 00:25 37.5 C 95 16 121/55 L 93 Weight: Weight 11/02/17 11/03/17 11/04/17 23:59 23:59 23:59 Weight (kg) 47 kg Intake & Output: Intake and Output Totals x24h 11/02/17 11/03/17 11/04/17 23:59 23:59 23:59 Intake Total 2049 2100.000 Output Total 1400 Balance 205 700.000 - Lab Results Lab Results: 11/04/17 06:31 11/04/17 06:31 Other Lab Results: Lab Results x24hrs 11/04/17 11/04/17 11/04/17 Range/Units 06:58 06:31 06:31 WBC 11.2 H (4.8-10.8) x10^3/uL RBC 3.89 L (4.20-5.40) 10^6/uL Hgb 8.7 L (12.0-16.0) g/dL Hct 26.3 L (37.0-47.0) % MCV 67.5 L (81.0-99.0) fL MCH 22.4 L (27.0-31.0) pg MCHC 33.2 (32.0-36.0) g/dL RDW 16.1 H (12.0-15.0) % Plt Count 215 (130-450) 10^3/uL MPV 7.2 L (7.9-10.8) fL PT (9.9-12.6) secs INR (0.8-1.2) Sodium 137 (135-145) mmol/L Potassium 4.0 (3.5-5.0) mmol/L Chloride 109 (101-111) mmol/L Carbon Dioxide 23 (21-32) mmol/L Anion Gap 5.0 L (6-13) BUN 16 (6-20) mg/dL Creatinine 1.0 (0.4-1.0) mg/dL Estimated GFR (MDRD) 58 L (>89) Glucose 151 H (70-100) mg/dL POC Whole Bld Glucose 150 H (70 - 100) mg/dL Glycated Hemoglobin (4.6-6.2) % Estim Average Glucose (70-100) Calcium 8.1 L (8.5-10.3) mg/dL Vitamin B12 (180-914) pg/mL Folate (5.90 - >24.8) ng/mL 11/03/17 11/03/17 11/03/17 Range/Units 20:48 18:54 18:06 WBC (4.8-10.8) x10^3/uL RBC (4.20-5.40) 10^6/uL Hgb 8.6 L (12.0-16.0) g/dL Hct 26.3 L (37.0-47.0) % MCV (81.0-99.0) fL MCH (27.0-31.0) pg MCHC (32.0-36.0) g/dL RDW (12.0-15.0) % Plt Count (130-450) 10^3/uL MPV (7.9-10.8) fL PT (9.9-12.6) secs INR (0.8-1.2) Sodium (135-145) mmol/L Potassium (3.5-5.0) mmol/L Chloride (101-111) mmol/L Carbon Dioxide (21-32) mmol/L Anion Gap (6-13) BUN (6-20) mg/dL Creatinine (0.4-1.0) mg/dL Estimated GFR (MDRD) (>89) Glucose (70-100) mg/dL POC Whole Bld Glucose 198 H 116 H (70 - 100) mg/dL Glycated Hemoglobin (4.6-6.2) % Estim Average Glucose (70-100) Calcium (8.5-10.3) mg/dL Vitamin B12 (180-914) pg/mL Folate (5.90 - >24.8) ng/mL 11/03/17 11/03/17 11/03/17 Range/Units 12:53 08:40 06:30 WBC (4.8-10.8) x10^3/uL RBC (4.20-5.40) 10^6/uL Hgb (12.0-16.0) g/dL Hct (37.0-47.0) % MCV (81.0-99.0) fL MCH (27.0-31.0) pg MCHC (32.0-36.0) g/dL RDW (12.0-15.0) % Plt Count (130-450) 10^3/uL MPV (7.9-10.8) fL PT 13.5 H (9.9-12.6) secs INR 1.2 (0.8-1.2) Sodium (135-145) mmol/L Potassium (3.5-5.0) mmol/L Chloride (101-111) mmol/L Carbon Dioxide (21-32) mmol/L Anion Gap (6-13) BUN (6-20) mg/dL Creatinine (0.4-1.0) mg/dL Estimated GFR (MDRD) (>89) Glucose (70-100) mg/dL POC Whole Bld Glucose 140 H (70 - 100) mg/dL Glycated Hemoglobin (4.6-6.2) % Estim Average Glucose (70-100) Calcium (8.5-10.3) mg/dL Vitamin B12 732 (180-914) pg/mL Folate 28.00 (5.90 - >24.8) ng/mL 11/03/17 Range/Units 06:20 WBC (4.8-10.8) x10^3/uL RBC (4.20-5.40) 10^6/uL Hgb (12.0-16.0) g/dL Hct (37.0-47.0) % MCV (81.0-99.0) fL MCH (27.0-31.0) pg MCHC (32.0-36.0) g/dL RDW (12.0-15.0) % Plt Count (130-450) 10^3/uL MPV (7.9-10.8) fL PT (9.9-12.6) secs INR (0.8-1.2) Sodium (135-145) mmol/L Potassium (3.5-5.0) mmol/L Chloride (101-111) mmol/L Carbon Dioxide (21-32) mmol/L Anion Gap (6-13) BUN (6-20) mg/dL Creatinine (0.4-1.0) mg/dL Estimated GFR (MDRD) (>89) Glucose (70-100) mg/dL POC Whole Bld Glucose (70 - 100) mg/dL Glycated Hemoglobin 6.9 H (4.6-6.2) % Estim Average Glucose 151 H (70-100) Calcium (8.5-10.3) mg/dL Vitamin B12 (180-914) pg/mL Folate (5.90 - >24.8) ng/mL - Current Medications Current Medications: Current Medications Generic Name Dose Route Start Last Admin Trade Name Freq PRN Reason Stop Dose Admin Acetaminophen 650 mg 11/03/17 22:40 11/03/17 23:06 Tylenol PO 650 mg Q4HR PRN Administration Pain or Fever > 38C (100.4F) Ferrous Sulfate 325 mg 11/03/17 08:00 11/03/17 18:33 Feosol PO 325 mg BIDWM SEN Administration Insulin Human Regular 1 - 5 unit 11/03/17 12:00 11/04/17 07:05 Novolin R SUBQ 1 unit Q6HR SEN Administration Protocol Lisinopril 10 mg 11/03/17 09:00 11/03/17 09:51 Zestril PO 10 mg DAILY SEN Administration Metformin HCl 500 mg 11/03/17 22:00 11/03/17 22:30 Glucophage PO Not Given BIDWM SEN Pantoprazole Sodium 40 mg 11/03/17 09:00 11/03/17 21:02 Protonix IVP 40 mg BID SEN Administration Polyethylene Glycol 17 gm 11/03/17 09:00 11/03/17 09:51 Miralax PO Not Given DAILY SEN Sodium Chloride 10 ml 11/02/17 20:01 11/03/17 21:02 Normal Saline Flush 0.9% IVP 20 ml PRN PRN Administration NEEDED PER PROVIDER ORDERS Sodium Chloride 10 ml 11/03/17 01:00 11/04/17 00:46 Normal Saline Flush 0.9% IVP 10 ml 0100,0900,1700 SEN Administration - Physical Exam General Appearance: positive: Alert, Mild distress (c/o headache) Abdomen: positive: Non-tender, No organomegaly, Nml bowel sounds, No distention. negative: Guarding, Rebound, Hepatomegaly, Splenomegaly, Mass Neurologic/Psychiatric: positive: Oriented x3 ABX Reporting Has patient been on IV antibiotics over the past 48 hours?: No Impression/Plan - Problem List Problem List: UGI Bleed: resolved; likely due to multiple gastric ulcers, may also be cause of her chronic iron deficiency anemia. Rec: No NSAIDs, await H. Pylori testing and treat if +; no alcohol. Outpt f/u with me including scheduling repeat EGD to document satisfactory healing, as well as colonoscopy to r/o secondary lesions that might be causing her anemia.
[2017-11-04 07:32] VITALS: BP 149/70
[2017-11-04] MEDS: PANTOPRAZOLE 40 MG VIAL IVP SCH (08:01)
[2017-11-04] MEDS: POLYETHYLENE GLYCOL 3350 17 GM PACKET PO SCH (08:01)
[2017-11-04] MEDS: FERROUS SULFATE 325 MG TABLET PO SCH (08:02)
[2017-11-04] MEDS: LISINOPRIL 5 MG TABLET PO SCH (08:02)
[2017-11-04] MEDS: metFORMIN 500 MG TABLET PO SCH (08:09)
[2017-11-04] MEDS: SODIUM CHLORIDE FLUSH 0.9% 10 ML SYRINGE IVP PRN (08:11)
--- NOTE | 2017-11-04 10:29 | Discharge Plan ---
Discharge Plan Disposition: Home, Self Care Condition: Good Prescriptions: Ferrous Sulfate 325 mg PO BID #60 tablet Pantoprazole [Protonix] 40 mg PO BID #60 tablet Diet: Regular Activity Restrictions: No Restrictions Shower Restrictions: No Driving Restrictions: No Weight Bearing: Full Weight Additional Instructions or Follow Up instructions: You were admitted for a GI bleed. You underwent a EGD with biopsies; and were found to have gastric ulcers. We are testing for H. Pylori and this is pending. You need to continue to take a PPI (proton pump inhibitor) and an iron supplement twice daily. You should avoid ibuprofen (Advil or Motrin), naproxen (Alieve) or aspirin. Please see the GI department in 1-2 weeks to discuss test findings and plan. Please see your PCP within one week, and stay off work until then. No Smoking: If you smoke, Please STOP! Call for help. Follow-up with: Tristan Garland DO [Primary Care Provider] -
--- NOTE | 2017-11-04 11:02 | DISCHARGE SUMMARY ---
"Discharge Summary Admit Date: 11/02/17 Discharge Date: 11/04/17 Discharging Provider: WHIT Crooks Primary Care Provider: Luiz Garland Code Status: Attempt Resuscitation Condition at Discharge: Good Discharge Disposition: 01 Home, Self Care - DIAGNOSES Admission Diagnoses: Gastrointestinal hemorrhage, unspecified (K92.2) Personal history of other diseases of the circulatory system (Z86.79) Type 2 diabetes mellitus without complications (E11.9) Anemia, unspecified (D64.9) Discharge Diagnoses with Status of Each Condition: Upper GI bleed (K92.2) -resolved. Patient found to have ulcers. Essential hypertension (I10) -stable, continue home medications. Type 2 diabetes mellitus (E11.9) -elevated HgA1C, stable. Hyperlipidemia (E78.5) -stable. Iron deficiency anemia (D50.9)- treatment to continue with iron supplement. - HPI History of Present Illness: Karen Merino is a pleasant 56-year-old female with a past medical history of hypertension, diabetes mellitus type 2, anemia, orthostatic headaches, hyperlipidemia, urinary tract infections, dental decay and a history of sepsis. The patient awoke this morning with bad headache. She took Tylenol with no relief and was nauseated without emesis. Unfortunately she did become sick to her stomach and vomited a few hours later. Upon presentation to the ED she was found to have an episode of coffee-ground emesis. She had a stable hemoglobin and hematocrit of 9.9 and 30.8 in the ED, she was afebrile, with normal vital signs. She was admitted to the observation unit for further work up for this GI bleeding. A general surgery consult was initiated, who was Dr. Dav Arroyo for a possible EGD, monitor for additional blood loss, and monitor electrolyte abnormalities. - CONSULTS | PROCEDURES Consultations: Dr Dav Arroyo, GI Procedures: EGD with biopsies, samples are pending. - HOSPITAL COURSE Hospital Course: The following diagnoses were prevalent during this hospital stay: (1) Upper GI bleed- The patient first had head ache symptoms, that progressed to ongoing nausea followed by coffee-ground emesis in the ED. The patient was kept NPO and her diet was resumed shortly before the time of discharge. The patient had no further nausea, vomiting, melena/hematochezia and no further abdominal pain. The patient underwent an EGD with Dr. Dav Arroyo when biopsies were obtained and were still pending at the time of discharge. She is to continue PPI BID, and see GI out patient within 1-2 weeks. (2) Essential hypertension The patient's blood pressures ranged from 159/84 to 119/61. She is prescribed Lisinopril 10mg daily at home, which was resumed upon discharge. (3) Type 2 diabetes [id number] dependent A hemoglobin A1C was obtained which was 6.9%. The patient has a history of type 2 diabetes and is prescribed metformin 500 mg BID. Blood sugars ranged from 116-198 while in the hospital. (4) Hyperlipidemia The patient was resumed on her simvastatin shortly after her EGD procedure. (5) Iron deficiency anemia The patient was found to have microcytic cells based on her low MCVs. The patient had elevated RDW, so B12 and folate levels blood levels were obtained which were normal. Iron studies revealed low values with an iron of 17, TIBC 186, % 9, and transferrin of 133. A type and screen (AB positive) was obtained , but the patient did not need any blood products. She had a baseline hemoglobin of 10-12 that was 9.9 and 8.1. She had a baseline hematocrit of 30- 36 that was 30.8 and 24.9. The patient remained free from symptoms from her anemia. Disposition: Prescriptions for ferrous sulfate and Protonix were both sent to the pharmacy. The patient was provided a work excuse note as requested. She was given instructions and told to return for any further symptoms. PCP should monitor for adequate blood sugar control and follow iron studies over the next few months. - ALLERGIES Allergies/Adverse Reactions: Allergies Allergy/AdvReac Type Severity Reaction Status Date / Time influenza virus vaccine, Allergy Severe Anaphylaxis Verified 08/26/15 19:14 specific [influenza virus vacc,specific] - MEDICATIONS Home Medications: Ambulatory Orders Medication Instructions Recorded Confirmed Lisinopril 10 mg PO DAILY 08/17/14 11/04/17 Simvastatin [Zocor] 40 mg PO DAILY 08/17/14 11/04/17 metFORMIN [Glucophage] 500 mg PO BID 01/27/15 11/04/17 Ferrous Sulfate 325 mg PO BID #60 tablet 11/04/17 Pantoprazole [Protonix] 40 mg PO BID #60 tablet 11/04/17 - PHYSICAL EXAM AT DISCHARGE General Appearance: positive: No acute distress, Alert Eyes Bilateral: positive: Normal inspection, PERRL ENT: positive: ENT inspection nml, Pharynx nml, No signs of dehydration Neck: positive: Nml inspection, Thyroid nml, No JVD, Trachea midline Respiratory: positive: Chest non-tender, No respiratory distress, Breath sounds nml Cardiovascular: positive: Regular rate & rhythm, No gallop Peripheral Pulses: positive: 2+ Abdomen: positive: Non-tender, Nml bowel sounds, Guarding Back: positive: Nml inspection Skin: positive: Color nml, No rash, Warm, Dry Extremities: positive: Non-tender, Full ROM, Nml appearance Neurologic/Psychiatric: positive: Oriented x3, CN's nml (2-12), Motor nml, Sensation nml Reflexes: Bicep (R): 3+, Bicep (L): 3+ - LABS Result Diagrams: 11/04/17 06:31 11/04/17 06:31 - DIAGNOSTIC IMAGING Diagnostic Imaging Results: Final report reviewed Diagnostic Imaging Results Comments: EXAM: CT HEAD WITHOUT CONTRAST EXAM DATE: 11/02/2017 04:59 PM. CLINICAL HISTORY: Headache (severe). IMPRESSION: Normal head CT. - FOLLOW UP Follow Up: Disposition: 01 Home, Self Care Condition: Good Prescriptions: Ferrous Sulfate 325 mg PO BID #60 tablet Pantoprazole [Protonix] 40 mg PO BID #60 tablet Diet: Regular Activity Restrictions: No Restrictions Shower Restrictions: No Driving Restrictions: No Weight Bearing: Full Weight Additional Instructions or Follow Up instructions: You were admitted for a GI bleed. You underwent a EGD with biopsies; and were found to have gastric ulcers. We are testing for H. Pylori and this is pending. You need to continue to take a PPI (proton pump inhibitor) and an iron supplement twice daily. You should avoid ibuprofen (Advil or Motrin), naproxen (Alieve) or aspirin. Please see the GI department in 1-2 weeks to discuss test findings and plan. Please see your PCP within one week, and stay off work until then. - TIME SPENT Time Spent in Discharge (Minutes): 40"
== END 2017-11-04 11:33 | disposition home or self-care (01) ==
LOC: ED 16:12 → OBS 20:01
PROVIDERS: ADMIT Hospitalist; ATTEND Nurse Practitioner
PROC: 0DB68ZX Excision of Stomach, Via Natural or Artificial Opening Endoscopic, Diagnostic (ICD-10-PCS; principal; 2017-11-03 15:30)
DX: K25.4 Chronic or unspecified gastric ulcer with hemorrhage (principal); I10 Essential (primary) hypertension; E11.65 Type 2 diabetes mellitus with hyperglycemia; E78.5 Hyperlipidemia, unspecified; D50.9 Iron deficiency anemia, unspecified; Z87.440 Personal history of urinary (tract) infections; Z86.19 Personal history of other infectious and parasitic diseases; Z79.84 Long term (current) use of oral hypoglycemic drugs; Z79.899 Other long term (current) drug therapy; R51 Headache
CPT/HCPCS: 36415; 43239; 70450; 80048; 80053; 82607; 82746; 83036; 83540; 83690; 83880; 84132; 84466; 84484; 85014; 85018; 85025; 85027; 85379; 85610; 86850; 86900; 86901; 87081; 93005; 94640; 96361; 96365; 96367; 96375; 96376; 99285; A9270; J0131; J1815; J7120

== ENCOUNTER 2018-01-13 07:41 | Day surgery (SDC) | payer MEDICAID ==
[~2018-01-13 07:41] MED LIST: LIDO GARGLE 30 ML BOTTLE ONE
[2018-01-13] MEDS ORDERED: LACTATED RINGERS 1,000 ML IV ONE (07:48)
[2018-01-13] MEDS ORDERED: fentaNYL 250 MCG/5 ML VIAL IVP ONE (09:57)
[2018-01-13] MEDS ORDERED: MIDAZOLAM 2 MG/2 ML VIAL IVP ONE (09:57)
[2018-01-13 11:22] VITALS: BP 148/76
== END 2018-01-13 07:42 | disposition home or self-care (01) ==
LOC: SDS 07:41
PROVIDERS: ATTEND Internal Medicine Gastroenterology
PROC: 0DJD8ZZ Inspection of Lower Intestinal Tract, Via Natural or Artificial Opening Endoscopic (ICD-10-PCS; principal; 2018-01-13 09:00)
PROC: 0DJ08ZZ Inspection of Upper Intestinal Tract, Via Natural or Artificial Opening Endoscopic (ICD-10-PCS; 2018-01-13 09:00)
DX: D50.9 Iron deficiency anemia, unspecified (principal); Z09 Encounter for follow-up examination after completed treatment for conditions other than malignant neoplasm; Z87.11 Personal history of peptic ulcer disease; I10 Essential (primary) hypertension; E11.9 Type 2 diabetes mellitus without complications; K21.9 Gastro-esophageal reflux disease without esophagitis; E78.00 Pure hypercholesterolemia, unspecified; Z79.84 Long term (current) use of oral hypoglycemic drugs
CPT/HCPCS: 43235; 45378; A9270; J3010; J7120

== ENCOUNTER 2019-08-25 12:09 | Emergency (ER) | payer SELFPAY ==
--- NOTE | 2019-08-25 12:43 | ED Physician Documentation ---
PD HPI DYSPNEA - Stated complaint Stated Complaint: C+, CHILLS - Chief complaint Chief Complaint: General - History obtained from History obtained from: Patient - History of Present Illness Timing - onset: Today Timing - onset during: Light activity (walking in parking lot to store.) Timing - details: Gradual onset (had fever, cough and some dyspnea last month and had positive COVID test. Seemed improved with it and has not had worse cough nor any fevers. Self-quarenteeded at home for 2 weeks. Is feeling better. Was fairly inactive for the couple weeks. Went out to grocery store today and got winded with feeling of dyspnea.), Waxing and waning Inciting event(s): URI Improved by: Inhaler/neb Associated symptoms: Cough, Chest pain / discomfort, Bilateral edema. 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 : None HEENT: None Psych: None Musculoskeletal: None Derm: None - Past Surgical History Past Surgical History: Yes General: Other - Present Medications Home Medications: Ambulatory Orders Medication Instructions Recorded Confirmed Simvastatin [Zocor] 40 mg PO DAILY 08/17/14 01/13/18 lisinopriL [Lisinopril] 10 mg PO DAILY 08/17/14 01/13/18 metFORMIN [Glucophage] 500 mg PO BID 01/27/15 01/13/18 Gabapentin 100 mg PO QPM 01/13/18 08/25/19 glyBURIDE [Glyburide] 0 ng PO DAILY 01/13/18 01/13/18 Albuterol Sulfate [Albuterol 2 puffs IH QID #1 hfa.aer.ad 08/25/19 Sulfate Hfa] Doxycycline Monohydrate 100 mg PO BID #14 tablet 08/25/19 Ferrous Sulfate 325 mg PO DAILY #20 tablet 08/25/19 Glimepiride 08/25/19 Glimepiride DAILY 08/25/19 Naproxen 375 mg PO BID #15 tablet 08/25/19 Pantoprazole [Protonix] 40 mg PO QPM 08/25/19 - Allergies Allergies/Adverse Reactions: Allergies Allergy/AdvReac Type Severity Reaction Status Date / Time influenza virus vaccine, Allergy Severe Anaphylaxis Verified 08/25/19 12:18 specific [influenza virus vacc,specific] - Social History Does the pt smoke?: No Smoking Status: Never smoker Does the pt drink ETOH?: No Does the pt have substance abuse?: No - Immunizations Immunizations are current?: Yes - POLST Patient has POLST: No POLST Status: Full Code PD ED PE NORMAL - Vitals Vital signs reviewed: Yes - General General: Alert and oriented X 3, No acute distress, Well developed/nourished - HEENT HEENT: Atraumatic, PERRL, Ears normal, Pharynx benign - Neck Neck: Supple, no meningeal sign, No adenopathy - Cardiac Cardiac: No murmur - Respiratory Respiratory: No respiratory distress, Clear bilaterally (some sheezing with ) - Abdomen Abdomen: Soft, Non tender Results - Vitals Vitals: Vital Signs - 24 hr 08/25/19 08/25/19 08/25/19 12:18 13:20 13:54 Temperature 36.7 C Heart Rate 112 H 105 H 110 H Respiratory 17 20 Rate Blood Pressure 158/96 H O2 Saturation 100 100 08/25/19 15:09 Temperature 36.9 C Heart Rate 88 Respiratory 20 Rate Blood Pressure 132/75 H O2 Saturation 100 Oxygen O2 Source Room air - Labs Labs: Laboratory Tests 08/25/19 08/25/19 08/25/19 13:50 13:50 13:50 WBC 7.8 RBC 4.08 L Hgb 9.1 L Hct 27.2 L MCV 66.7 L MCH 22.3 L MCHC 33.5 RDW 16.3 H Plt Count 608 H MPV 8.5 Neut # (Auto) 5.0 Lymph # (Auto) 1.6 [place] # (Auto) 0.9 Eos # (Auto) 0.2 Baso # (Auto) 0.1 Absolute Nucleated RBC 0.02 Nucleated RBC % 0.3 Sodium 135 Potassium 5.5 H Chloride 104 Carbon Dioxide 22 Anion Gap 9.0 BUN 46 H Creatinine 1.4 H Estimated GFR (MDRD) 39 L Glucose 233 H Calcium 8.9 Magnesium 2.1 Iron TIBC % Saturation Transferrin Total Bilirubin < 0.2 L AST 15 ALT 12 Alkaline Phosphatase 88 Troponin I High Sens B-Natriuretic Peptide 14 Total Protein 8.1 Albumin 3.7 Globulin 4.4 H Albumin/Globulin Ratio 0.8 L Lipase 90 H 08/25/19 08/25/19 13:50 13:50 WBC RBC Hgb Hct MCV MCH MCHC RDW Plt Count MPV Neut # (Auto) Lymph # (Auto) [place] # (Auto) Eos # (Auto) Baso # (Auto) Absolute Nucleated RBC Nucleated RBC % Sodium Potassium Chloride Carbon Dioxide Anion Gap BUN Creatinine Estimated GFR (MDRD) Glucose Calcium Magnesium Iron 57 TIBC 297 % Saturation 19 L Transferrin 212 Total Bilirubin AST ALT Alkaline Phosphatase Troponin I High Sens 3.6 B-Natriuretic Peptide Total Protein Albumin Globulin Albumin/Globulin Ratio Lipase - Rads (name of study) chest xray Radiology: Prelim report reviewed (small area of consolidation LL lobe. ), See rad report PD MEDICAL DECISION MAKING - ED course Complexity details: reviewed results, re-evaluated patient (seems likely persistent bronchial inflamation causing persistent dyspena. CXR shows local infiltrate, though. ), considered differential (had COVID cough last month for a week and then was better. The past several days without fever, significant cough , edema. Had been fairly inactive during 2 weeks, and today went to store and felt dyspnea walking in the parking lot. Did not expect to be so dyspneic. ), d/w patient Departure - Departure Disposition: 01 Home, Self Care Clinical Impression: Pneumonia due to COVID-19 virus Dyspnea Qualifiers: Dyspnea type: dyspnea on exertion Qualified Code(s): R06.00 - Dyspnea, unspecified Condition: Stable Record reviewed to determine appropriate education?: Yes Instructions: ED Pneumonia Adult Follow-Up: Tristan Garland DO [Primary Care Provider] - Prescriptions: Albuterol Sulfate [Albuterol Sulfate Hfa] 2 puffs IH QID #1 hfa.aer.ad Doxycycline Monohydrate 100 mg PO BID #14 tablet Ferrous Sulfate 325 mg PO DAILY #20 tablet Naproxen 375 mg PO BID #15 tablet Comments: Your EKG and blood tests are normal regarding your heart. You are anemic and have been anemic for a while. Adding a iron supplement may be helpful. This probably contributes to your shortness of breath. You most likely have some inflammation through the airways related to the recent COVID infection. Your chest x-ray shows a small patch of infiltrate which may be left over from the recent infection or could represent a new secondary infection. For that reason, we can go some antibiotics for a week just in case. Otherwise an anti-inflammatory would be helpful and an inhaler to help with your breathing. Forms: Activity restrictions Discharge Date/Time: 08/25/19 15:40
[2019-08-25] MEDS ORDERED: ALBUTEROL 1 PUFF INH STA (13:28)
[2019-08-25 13:57] LABS: BASOPHILS # (AUTO) 0.1 10^3/uL (0.0-0.1); BASOPHILS % (AUTO) 0.8 %; EOSINOPHILS # (AUTO) 0.2 10^3/uL (0.0-0.7); EOSINOPHILS % (AUTO) 2.2 %; HGB - HEMOGLOBIN 9.1 g/dL (12.0-16.0); LYMPHOCYTES # (AUTO) 1.6 10^3/uL (1.5-3.5); LYMPHOCYTES % (AUTO) 20.1 %; MEAN CORPUSCULAR HEMOGLOBIN 22.3 pg (27.0-31.0); MEAN CORPUSCULAR HGB CONC 33.5 g/dL (32.0-36.0); MEAN CORPUSCULAR VOLUME 66.7 fL (81.0-99.0); MEAN PLATELET VOLUME 8.5 fL (7.9-10.8); MONOCYTES # (AUTO) 0.9 10^3/uL (0.0-1.0); MONOCYTES % (AUTO) 11.2 %; NEUTROPHILS % (AUTO) 64.5 %; PLT - PLATELET COUNT 608 10^3/uL (130-450); RED BLOOD COUNT 4.08 10^6/uL (4.20-5.40); RED CELL DISTRIBUTION WIDTH 16.3 % (12.0-15.0); WHITE BLOOD COUNT 7.8 x10^3/uL (4.8-10.8)
[2019-08-25 14:15] LABS: ALBUMIN 3.7 g/dL (3.2-5.5); ALBUMIN/GLOBULIN RATIO 0.8 (1.0-2.2); ALKALINE PHOSPHATASE 88 IU/L (42-121); ALT ALANINE AMINOTRANSFERASE 12 IU/L (10-60); AST ASPARTATE AMINOTRANSFERASE 15 IU/L (10-42); BILIRUBIN,TOTAL < 0.2 mg/dL (0.2-1.0); BUN - BLOOD UREA NITROGEN 46 mg/dL (6-20); CALCIUM 8.9 mg/dL (8.5-10.3); CARBON DIOXIDE - CO2 22 mmol/L (21-32); CHLORIDE 104 mmol/L (101-111); CREATININE 1.4 mg/dL (0.4-1.0); GLUCOSE 233 mg/dL (70-100); LIPASE 90 U/L (22-51); MAGNESIUM 2.1 mg/dL (1.7-2.8); SODIUM 135 mmol/L (135-145); TOTAL PROTEIN 8.1 g/dL (6.7-8.2)
--- NOTE | 2019-08-25 14:22 | XRAY Report ---
Reason: chest pain Procedure Date: 08/25/2019 Accession Number: [id number] / [id number] Procedure: XR - Chest 1 View X-Ray CPT Code: 89440 Final Report FULL RESULT: EXAM: CHEST RADIOGRAPHY EXAM DATE: 08/25/2019 01:53 PM. CLINICAL HISTORY: Chest pain. COMPARISON: CHEST 2 VIEW PA/LAT 08/26/2015 8:50 PM. TECHNIQUE: 1 view. FINDINGS: Lungs/Pleura: There is a small focus of consolidation in the periphery of the left lower lobe. There are no pleural effusions. The right lung appears unremarkable. Mediastinum: Within exam limitations, the cardiomediastinal contour is normal. Other: None. IMPRESSION: Nonspecific small focus of consolidation in the left lower lobe. The findings may indicate evolving pneumonia. RADIA
[2019-08-25 14:47] LABS: % IRON SATURATION 19 % (20-50); IRON 57 ug/dL (28-170); TOTAL IRON BINDING CAPACITY 297 ug/dL (250-450); TRANSFERRIN 212 mg/dL (192-382)
[2019-08-25 15:12] VITALS: BP 132/75
== END 2019-08-25 15:40 | disposition home or self-care (01) ==
LOC: ED 12:09
DX: U07.1 COVID-19 (principal); J12.89 Other viral pneumonia; D64.9 Anemia, unspecified; I10 Essential (primary) hypertension; E11.9 Type 2 diabetes mellitus without complications; Z79.84 Long term (current) use of oral hypoglycemic drugs
CPT/HCPCS: 36415; 71045; 80053; 83540; 83690; 83735; 83880; 84466; 84484; 85025; 93005; 94640; 99284

== ENCOUNTER 2021-01-07 21:12 | Emergency (ER) | payer OTHER ==
[2021-01-07 22:20] LABS: BASOPHILS # (AUTO) 0.1 10^3/uL (0.0-0.1); EOSINOPHILS # (AUTO) 0.5 10^3/uL (0.0-0.7); HCT - HEMATOCRIT 32.8 % (37.0-47.0); LYMPHOCYTES # (AUTO) 1.2 10^3/uL (1.5-3.5); LYMPHOCYTES % (AUTO) 20.3 %; MEAN CORPUSCULAR HEMOGLOBIN 22.7 pg (27.0-31.0); MEAN CORPUSCULAR HGB CONC 33.5 g/dL (32.0-36.0); MEAN CORPUSCULAR VOLUME 67.6 fL (81.0-99.0); MEAN PLATELET VOLUME 8.9 fL (7.9-10.8); MONOCYTES # (AUTO) 0.4 10^3/uL (0.0-1.0); NEUTROPHILS # (AUTO) 3.7 10^3/uL (1.5-6.6); NEUTROPHILS % (AUTO) 61.5 %; PLT - PLATELET COUNT 283 10^3/uL (130-450); RED BLOOD COUNT 4.85 10^6/uL (4.20-5.40); RED CELL DISTRIBUTION WIDTH 17.6 % (12.0-15.0)
[2021-01-07 22:40] LABS: KETONES, SERUM (ACETEST) NEGATIVE (NEGATIVE)
[2021-01-07 22:42] LABS: ALBUMIN 3.9 g/dL (3.2-5.5); ALBUMIN/GLOBULIN RATIO 1.7 (1.0-2.2); ALKALINE PHOSPHATASE 91 IU/L (42-121); ALT ALANINE AMINOTRANSFERASE 17 IU/L (10-60); AST ASPARTATE AMINOTRANSFERASE 16 IU/L (10-42); BILIRUBIN,TOTAL 0.7 mg/dL (0.2-1.0); BUN - BLOOD UREA NITROGEN 41 mg/dL (6-20); CALCIUM 9.3 mg/dL (8.5-10.3); CARBON DIOXIDE - CO2 24 mmol/L (21-32); CHLORIDE 98 mmol/L (101-111); CREATININE 1.7 mg/dL (0.4-1.0); GFR - MDRD 31 (>89); LIPASE 63 U/L (22-51); POTASSIUM 4.5 mmol/L (3.5-5.0); SODIUM 132 mmol/L (135-145); TOTAL PROTEIN 6.2 g/dL (6.7-8.2)
[2021-01-07 22:44] LABS: GLUCOSE 568 mg/dL (70-100)
[2021-01-07] MEDS ORDERED: SODIUM CHLORIDE 0.9% 1,000 ML IV STA (22:51)
[2021-01-07] MEDS ORDERED: INSULIN REGULAR HUMAN 100 UNIT in SODIUM CHLORIDE 0.9% 100ML 99 ML IV STA (22:51)
[2021-01-08] MEDS ORDERED: INSULIN REGULAR HUMAN 100 UNIT/1 ML 10 ML MDV ONE (00:02)
--- NOTE | 2021-01-08 01:15 | ED Physician Documentation ---
History of Present Illness - Stated complaint Stated Complaint: HIGH BLOOD SUGAR - Chief complaint Chief Complaint: General - History obtained from History obtained from: Patient - History of Present Illness Timing: Today - Additonal information Additional information: 60-year-old female type II diabetic has developed acute dizziness and lightheadedness this evening and noted her blood sugar to be elevated. She notes that she had some pulled pork and fruit punch this evening prior to coming to the emergency department and states that after she had that while she was at work she developed the symptoms and is come to the emergency department for evaluation. She feels like she might be pretty dehydrated. She has not otherwise been ill. Review of Systems Constitutional: denies: Fever Eyes: denies: Decreased vision Ears: denies: Ear pain Nose: denies: Congestion Throat: denies: Sore throat Cardiac: denies: Chest pain / pressure, Palpitations Respiratory: denies: Dyspnea, Cough GI: denies: Abdominal Pain, Nausea, Vomiting, Constipation, Diarrhea : reports: Frequency. denies: Dysuria Skin: denies: Rash Musculoskeletal: denies: Neck pain, Back pain, Extremity pain Neurologic: reports: Other (Dizziness and lightheadedness). 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 : None HEENT: None Psych: None Musculoskeletal: None Derm: None - Past Surgical History Past Surgical History: Yes General: Other - Present Medications Home Medications: Ambulatory Orders Medication Instructions Recorded Confirmed Simvastatin [Zocor] 40 mg PO DAILY 08/17/14 01/13/18 lisinopriL [Lisinopril] 10 mg PO DAILY 08/17/14 01/13/18 metFORMIN [Glucophage] 500 mg PO BID 01/27/15 01/13/18 Gabapentin 100 mg PO QPM 01/13/18 08/25/19 glyBURIDE [Glyburide] 0 ng PO DAILY 01/13/18 01/13/18 Albuterol Sulfate [Albuterol 2 puffs IH QID #1 hfa.aer.ad 08/25/19 Sulfate Hfa] Doxycycline Monohydrate 100 mg PO BID #14 tablet 08/25/19 Ferrous Sulfate 325 mg PO DAILY #20 tablet 08/25/19 Glimepiride 08/25/19 Glimepiride DAILY 08/25/19 Naproxen 375 mg PO BID #15 tablet 08/25/19 Pantoprazole [Protonix] 40 mg PO QPM 08/25/19 - Allergies Allergies/Adverse Reactions: Allergies Allergy/AdvReac Type Severity Reaction Status Date / Time influenza virus vaccine, Allergy Severe Anaphylaxis Verified 01/07/21 21:21 specific [influenza virus vacc,specific] - Social History Does the pt smoke?: No Smoking Status: Never smoker Does the pt drink ETOH?: No Does the pt have substance abuse?: No - Immunizations Immunizations are current?: Yes - POLST Patient has POLST: No POLST Status: Full Code PD ED PE NORMAL - Vitals Vital signs reviewed: Yes (hyppertensive ) - General General: Alert and oriented X 3, No acute distress, Well developed/nourished - HEENT HEENT: Atraumatic, PERRL, EOMI - Neck Neck: Supple, no meningeal sign, No bony TTP - Cardiac Cardiac: RRR, No murmur - Respiratory Respiratory: No respiratory distress, Clear bilaterally - Abdomen Abdomen: Normal bowel sounds, Soft, Non tender, Non distended, No organomegaly - Back Back: No CVA TTP, No spinal TTP - Derm Derm: Normal color, Warm and dry, No rash - Extremities Extremities: No deformity, No edema - Neuro Neuro: Alert and oriented X 3, manager bridge 2-12 intact, No motor deficit, No sensory deficit, Normal speech Eye Opening: Spontaneous Motor: Obeys Commands Verbal: Oriented GCS Score: 15 - Psych Psych: Normal mood, Normal affect Results - Vitals Vitals: Vital Signs - 24 hr 01/07/21 01/08/21 01/08/21 21:21 00:13 02:13 Temperature 36.5 C Heart Rate 87 82 87 Respiratory 16 16 16 Rate Blood Pressure 160/88 H 153/79 H 135/86 H O2 Saturation 99 100 99 Oxygen O2 Source Room air - Labs Labs: Laboratory Tests 01/07/21 01/07/21 01/08/21 22:17 22:17 00:00 WBC 6.0 RBC 4.85 Hgb 11.0 L Hct 32.8 L MCV 67.6 L MCH 22.7 L MCHC 33.5 RDW 17.6 H Plt Count 283 MPV 8.9 Neut # (Auto) 3.7 Lymph # (Auto) 1.2 L [place] # (Auto) 0.4 Eos # (Auto) 0.5 Baso # (Auto) 0.1 Absolute Nucleated RBC 0.00 Nucleated RBC % 0.0 Sodium 132 L Potassium 4.5 Chloride 98 L Carbon Dioxide 24 Anion Gap 10.0 BUN 41 H Creatinine 1.7 H Estimated GFR (MDRD) 31 L Glucose 568 H* POC Whole Bld Glucose 432 H Calcium 9.3 Total Bilirubin 0.7 AST 16 ALT 17 Alkaline Phosphatase 91 Total Protein 6.2 L Albumin 3.9 Globulin 2.3 Albumin/Globulin Ratio 1.7 Lipase 63 H Serum Ketones NEGATIVE 01/08/21 01/08/21 01:15 02:02 WBC RBC Hgb Hct MCV MCH MCHC RDW Plt Count MPV Neut # (Auto) Lymph # (Auto) [place] # (Auto) Eos # (Auto) Baso # (Auto) Absolute Nucleated RBC Nucleated RBC % Sodium Potassium Chloride Carbon Dioxide Anion Gap BUN Creatinine Estimated GFR (MDRD) Glucose POC Whole Bld Glucose 284 H 167 H Calcium Total Bilirubin AST ALT Alkaline Phosphatase Total Protein Albumin Globulin Albumin/Globulin Ratio Lipase Serum Ketones PD MEDICAL DECISION MAKING - ED course Complexity details: reviewed old records, reviewed results, re-evaluated patient, considered differential, d/w patient ED course: 60-year-old type II diabetic with dizziness and lightheadedness with a blood sugar over 500 is administered intravenous saline and a drip of insulin is begun. Her sugar comes down and she feels improved. Departure - Departure Disposition: 01 Home, Self Care Clinical Impression: Hyperglycemia, Dehydration Condition: Stable Instructions: ED Hyperglycemia Diabetic, ED Dehydration Follow-Up: Tristan Garland DO [Primary Care Provider] - Discharge Date/Time: 01/08/21 02:14
--- NOTE | 2021-01-08 01:26 | ED Physician Documentation ---
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 : None HEENT: None Psych: None Musculoskeletal: None Derm: None - Past Surgical History Past Surgical History: Yes General: Other - Present Medications Home Medications: Ambulatory Orders Medication Instructions Recorded Confirmed Simvastatin [Zocor] 40 mg PO DAILY 08/17/14 01/13/18 lisinopriL [Lisinopril] 10 mg PO DAILY 08/17/14 01/13/18 metFORMIN [Glucophage] 500 mg PO BID 01/27/15 01/13/18 Gabapentin 100 mg PO QPM 01/13/18 08/25/19 glyBURIDE [Glyburide] 0 ng PO DAILY 01/13/18 01/13/18 Albuterol Sulfate [Albuterol 2 puffs IH QID #1 hfa.aer.ad 08/25/19 Sulfate Hfa] Doxycycline Monohydrate 100 mg PO BID #14 tablet 08/25/19 Ferrous Sulfate 325 mg PO DAILY #20 tablet 08/25/19 Glimepiride 08/25/19 Glimepiride DAILY 08/25/19 Naproxen 375 mg PO BID #15 tablet 08/25/19 Pantoprazole [Protonix] 40 mg PO QPM 08/25/19 - Allergies Allergies/Adverse Reactions: Allergies Allergy/AdvReac Type Severity Reaction Status Date / Time influenza virus vaccine, Allergy Severe Anaphylaxis Verified 01/07/21 21:21 specific [influenza virus vacc,specific] - Social History Does the pt smoke?: No Smoking Status: Never smoker Does the pt drink ETOH?: No Does the pt have substance abuse?: No - Immunizations Immunizations are current?: Yes - POLST Patient has POLST: No POLST Status: Full Code Results - Vitals Vitals: Vital Signs - 24 hr 01/07/21 01/08/21 21:21 00:13 Temperature 36.5 C Heart Rate 87 82 Respiratory 16 16 Rate Blood Pressure 160/88 H 153/79 H O2 Saturation 99 100 Oxygen O2 Source Room air - Labs Labs: Laboratory Tests 0801/07/21 01/08/21 22:17 22:17 00:00 WBC 6.0 RBC 4.85 Hgb 11.0 L Hct 32.8 L MCV 67.6 L MCH 22.7 L MCHC 33.5 RDW 17.6 H Plt Count 283 MPV 8.9 Neut # (Auto) 3.7 Lymph # (Auto) 1.2 L [place] # (Auto) 0.4 Eos # (Auto) 0.5 Baso # (Auto) 0.1 Absolute Nucleated RBC 0.00 Nucleated RBC % 0.0 Sodium 132 L Potassium 4.5 Chloride 98 L Carbon Dioxide 24 Anion Gap 10.0 BUN 41 H Creatinine 1.7 H Estimated GFR (MDRD) 31 L Glucose 568 H* POC Whole Bld Glucose 432 H Calcium 9.3 Total Bilirubin 0.7 AST 16 ALT 17 Alkaline Phosphatase 91 Total Protein 6.2 L Albumin 3.9 Globulin 2.3 Albumin/Globulin Ratio 1.7 Lipase 63 H Serum Ketones NEGATIVE
[2021-01-08 02:14] VITALS: BP 135/86
== END 2021-01-08 02:14 | disposition home or self-care (01) ==
LOC: ED 21:12
DX: E11.65 Type 2 diabetes mellitus with hyperglycemia (principal); E86.0 Dehydration; R42 Dizziness and giddiness; I10 Essential (primary) hypertension
CPT/HCPCS: 36415; 80053; 82009; 83690; 85025; 96360; 99283; J1815

== ENCOUNTER 2021-06-19 17:57 | Emergency (ER) | payer OTHER ==
[2021-06-19] MEDS ORDERED: KETOROLAC 60 MG/2 ML VIAL IM STA (18:34)
--- NOTE | 2021-06-19 18:38 | ED Physician Documentation ---
PD HPI UPPER EXT INJURY - Stated complaint Stated Complaint: BACK PAIN - Chief complaint Chief Complaint: Trauma Ext - History obtained from History obtained from: Patient - History of Present Illness Location: Right, Shoulder Type of injury: Other (arm pulled hard while restraining a tipping nitesh lift.) Where injury occurred: Work Timing - onset: Today Timing - duration: Minutes Timing - details: Abrupt onset, Still present Improved by: Rest, Immobilization Worsened by: Moving, Palpating Associated symptoms: No: Weakness, Numbness, Tingling, Swelling, Discolored Similar symptoms before: Has not had sx before Recently seen: Not recently seen - Additonal information Additional information: Previously well 60-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 The 2 were transferring a client into his wheelchair and the Nitesh lift began to tip. The client fell into the chair to the wheelchair and the Nitesh lift continue to fall. The patient grabbed the lift to prevent it from falling and this pulled hard on her arm. She has pain to the right shoulder into the right scapula and the right lateral chest wall. She denies pain to the hand or forearm and has normal strength and denies any numbness. She has a reduced ROM of the shoulder joint. 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 : None HEENT: None Psych: None Musculoskeletal: None Derm: None - Past Surgical History Past Surgical History: Yes General: Other - Present Medications Home Medications: Ambulatory Orders Medication Instructions Recorded Confirmed Simvastatin [Zocor] 40 mg PO DAILY 08/17/14 01/13/18 lisinopriL [Lisinopril] 10 mg PO DAILY 08/17/14 01/13/18 metFORMIN [Glucophage] 500 mg PO BID 01/27/15 01/13/18 Gabapentin 100 mg PO QPM 01/13/18 08/25/19 glyBURIDE [Glyburide] 0 ng PO DAILY 01/13/18 01/13/18 Albuterol Sulfate [Albuterol 2 puffs IH QID #1 hfa.aer.ad 08/25/19 Sulfate Hfa] Doxycycline Monohydrate 100 mg PO BID #14 tablet 08/25/19 Ferrous Sulfate 325 mg PO DAILY #20 tablet 08/25/19 Glimepiride 08/25/19 Glimepiride DAILY 08/25/19 Naproxen 375 mg PO BID #15 tablet 08/25/19 Pantoprazole [Protonix] 40 mg PO QPM 08/25/19 HYDROcod/ACETAM 5/325 [[place] 5/325] 1 - 2 tablet PO Q6H PRN #14 tablet 06/19/21 - Allergies Allergies/Adverse Reactions: Allergies Allergy/AdvReac Type Severity Reaction Status Date / Time influenza virus vaccine, Allergy Severe Anaphylaxis Verified 06/19/21 18:08 specific [influenza virus vacc,specific] - Social History Does the pt smoke?: No Smoking Status: Never smoker Does the pt drink ETOH?: No Does the pt have substance abuse?: No - Immunizations Immunizations are current?: Yes - POLST Patient has POLST: No POLST Status: Full Code PD ED PE NORMAL - Vitals Vital signs reviewed: Yes (tachy and hypertensive ) - General General: Alert and oriented X 3, No acute distress, Well developed/nourished - HEENT HEENT: Atraumatic, PERRL, EOMI - Neck Neck: Supple, no meningeal sign, No bony TTP - Cardiac Cardiac: RRR, No murmur - Respiratory Respiratory: No respiratory distress, Clear bilaterally, Other (lateral chest wall tenderness on the right side at the insertion of the lattissimus to the chest wall is mild. Tenderness to the rhomboids on the right as well. No tenderness to the brachial plexus on the right. ) - Abdomen Abdomen: Soft, Non tender - Back Back: No CVA TTP, No spinal TTP - Derm Derm: Normal color, Warm and dry, No rash - Extremities Extremities: No deformity, No edema, Other (reduced ROM of the right shoulder distal n/v intact. ) - Neuro Neuro: Alert and oriented X 3, air operations manager 2-12 intact, No motor deficit, No sensory deficit, Normal speech Eye Opening: Spontaneous Motor: Obeys Commands Verbal: Oriented GCS Score: 15 - Psych Psych: Normal mood, Normal affect Results - Vitals Vitals: Vital Signs - 24 hr 06/19/21 18:03 Temperature 35.6 C L Heart Rate 102 H Respiratory 18 Rate Blood Pressure 181/94 H O2 Saturation 98 Oxygen O2 Source Room air - Rads (name of study) shoulder Radiology: Prelim report reviewed (Impression: No acute fracture no osseous lesion.), EMP read indepedently, See rad report PD MEDICAL DECISION MAKING - ED course Complexity details: reviewed results, re-evaluated patient, considered differential, d/w patient ED course: 60-year-old female has strained her right shoulder at work today and she has reduced range of motion tenderness to palpation of the chest wall over the lateral chest and rhomboid area all consistent with myofascial strain. She is likely to have significant pain associated with this and she may even have some brachial plexus injury but this is not apparent today. I have asked patient to take the entire week off of work and wear a sling to remove the sling frequently and do range of motion and expect some improvement over the next week she is administered Toradol here in the emergency department we will provide some pain medication for use at home. Departure - Departure Disposition: , Self Care Clinical Impression: Strain of right shoulder Qualifiers: Encounter type: initial encounter Qualified Code(s): S46.911A - Strain of unspecified muscle, fascia and tendon at shoulder and upper arm level, right arm, initial encounter Condition: Stable Instructions: ED Sprain Shoulder Follow-Up: Donny Gamino MD [Provider Admit Priv/Credential] - Prescriptions: HYDROcod/ACETAM 5/325 [[place] 5/325] 1 - 2 tablet PO Q6H PRN #14 tablet PRN Reason: Pain Comments: Danielle in, it looks like you have strained your right shoulder and the recommendation is to use the sling for comfort and remove this sling at least 4 times per day to do a range of motion exercises with the shoulder. Expect resolution in 7 to 10 days. I have given you a referral to orthopedics if you do not have rapid improvement in your symptoms. With myofascial injuries there is always a chance for a worse injury than what appears initially.We have prescribed some hydrocodone and this has been E scribed to [facility] in [place]. Forms: Activity restrictions
--- NOTE | 2021-06-19 19:32 | XRAY Report ---
PROCEDURE: Shoulder 3 View RT INDICATIONS: traction injury with reduced ROM TECHNIQUE: 3 views of the shoulder were acquired. COMPARISON: None. FINDINGS: Bones: No fractures or dislocations. No suspicious bony lesions. Visualized ribs appear intact. Soft tissues: No suspicious soft tissue calcifications. IMPRESSION: No acute fracture. No osseous lesion. If symptoms and/or clinical suspicion for patholog y continue, further assessment with repeat plain films, or advanced imaging (e.g., CT, MRI, or bone s can) is recommended for further assessment. Reviewed by: Candelaria Huston MD on 06/19/2021 7:31 PM PST Approved by: Candelaria Huston MD on 06/19/2021 7:31 PM PST Station ID: [id number]
[2021-06-19 19:41] VITALS: BP 150/80
== END 2021-06-19 19:39 | disposition home or self-care (01) ==
LOC: ED 17:57
DX: S46.911A Strain of unspecified muscle, fascia and tendon at shoulder and upper arm level, right arm, initial encounter (principal); W18.31XA Fall on same level due to stepping on an object, initial encounter; Y93.89 Activity, other specified; Y92.099 Unspecified place in other non-institutional residence as the place of occurrence of the external cause; Y99.0 Civilian activity done for income or pay; E11.9 Type 2 diabetes mellitus without complications; Z79.84 Long term (current) use of oral hypoglycemic drugs; I10 Essential (primary) hypertension
CPT/HCPCS: 96372; 99282; 99283

== ENCOUNTER 2021-07-26 09:46 | Outpatient (CLI) | payer OTHER ==
[2021-07-26 14:13] LABS: CALCIUM 8.6 mg/dL (8.5-10.3); CREATININE 1.1 mg/dL (0.4-1.0); POTASSIUM 4.6 mmol/L (3.5-5.0)
[2021-07-26 14:23] LABS: ESTIMATED AVERAGE GLUCOSE 258 mg/dL (70-100); HEMOGLOBIN A1c% 10.6 % (4.27-6.07)
[2021-07-26 15:17] LABS: CREATININE,URINE 31.4 mg/dL; MICROALBUM/CREATININE RATIO,UR 2923.6 ug/mg (<30.0); MICROALBUMIN,URINE 91.8 mg/dL (0-300.0)
== END 2021-07-26 09:47 | disposition home or self-care (01) ==
LOC: LAB.N 09:46
DX: E11.40 Type 2 diabetes mellitus with diabetic neuropathy, unspecified (principal)
CPT/HCPCS: 36415; 80048; 82043; 82570; 83036

== ENCOUNTER 2022-01-12 12:29 | Emergency (ER) | payer OTHER ==
[2022-01-12 12:50] LABS: BASOPHILS % (AUTO) 0.8 %; EOSINOPHILS # (AUTO) 0.1 10^3/uL (0.0-0.7); EOSINOPHILS % (AUTO) 2.2 %; HCT - HEMATOCRIT 30.4 % (37.0-47.0); LYMPHOCYTES % (AUTO) 19.2 %; MEAN CORPUSCULAR HEMOGLOBIN 21.7 pg (27.0-31.0); MEAN CORPUSCULAR HGB CONC 32.9 g/dL (32.0-36.0); MEAN CORPUSCULAR VOLUME 66.1 fL (81.0-99.0); MONOCYTES # (AUTO) 0.4 10^3/uL (0.0-1.0); MONOCYTES % (AUTO) 8.5 %; NEUTROPHILS # (AUTO) 3.5 10^3/uL (1.5-6.6); NEUTROPHILS % (AUTO) 68.9 %; PLT - PLATELET COUNT 304 10^3/uL (130-450); RED CELL DISTRIBUTION WIDTH 18.1 % (12.0-15.0)
--- NOTE | 2022-01-12 13:06 | ED Physician Documentation ---
History of Present Illness - Stated complaint Stated Complaint: HIGH POTASSIUM - Chief complaint Chief Complaint: General - History obtained from History obtained from: Patient - History of Present Illness Timing: Today Pain level max: 0 Pain level now: 0 - Additonal information Additional information: Patient is a 61-year-old female who presents to the emergency department stating that she was at [facility] this morning for routine blood draw when she was found to have hyperkalemia, 6.4. She is asymptomatic but was told to come to the emergency department for recheck. She is diabetic. She states her blood sugars normally 120. No fevers. No chills. No recent illnesses. Nothing makes it better or worse. She did not have any of the lab work with her. Patient is fully asymptomatic. No chest pain. No shortness of breath. No syncope or near syncope. No muscle cramps. No fatigue. Review of Systems Constitutional: denies: Fever, Chills Throat: denies: Sore throat Cardiac: denies: Chest pain / pressure, Palpitations Respiratory: denies: Cough GI: denies: Vomiting, Diarrhea Skin: denies: Rash Musculoskeletal: denies: Neck pain, Back pain Neurologic: denies: Headache PD PAST MEDICAL HISTORY - Past Medical History Cardiovascular: Hypertension, High cholesterol Respiratory: None Neuro: Headaches Endocrine/Autoimmune: Type 2 diabetes GI: GERD, Ulcers [employer]: None : None HEENT: None Psych: None Musculoskeletal: None Derm: None - Past Surgical History Past Surgical History: Yes General: Other - Present Medications Home Medications: Ambulatory Orders Medication Instructions Recorded Confirmed Simvastatin [Zocor] 40 mg PO DAILY 08/17/14 01/13/18 lisinopriL [Lisinopril] 10 mg PO DAILY 08/17/14 01/13/18 metFORMIN [Glucophage] 500 mg PO BID 01/27/15 01/13/18 Gabapentin 100 mg PO QPM 01/13/18 08/25/19 glyBURIDE [Glyburide] 0 ng PO DAILY 01/13/18 01/13/18 Albuterol Sulfate [Albuterol 2 puffs IH QID #1 hfa.aer.ad 08/25/19 Sulfate Hfa] Doxycycline Monohydrate 100 mg PO BID #14 tablet 08/25/19 Ferrous Sulfate 325 mg PO DAILY #20 tablet 08/25/19 Glimepiride 08/25/19 Glimepiride DAILY 08/25/19 Naproxen 375 mg PO BID #15 tablet 08/25/19 Pantoprazole [Protonix] 40 mg PO QPM 08/25/19 HYDROcod/ACETAM 5/325 [[place] 5/325] 1 - 2 tablet PO Q6H PRN #14 tablet 06/19/21 - Allergies Allergies/Adverse Reactions: Allergies Allergy/AdvReac Type Severity Reaction Status Date / Time influenza virus vaccine, Allergy Severe Anaphylaxis Verified 01/12/22 12:32 specific [influenza virus vacc,specific] - Social History Does the pt smoke?: No Smoking Status: Never smoker Does the pt drink ETOH?: No Does the pt have substance abuse?: No - Immunizations Immunizations are current?: Yes - POLST Patient has POLST: No POLST Status: Full Code PD ED PE NORMAL - Vitals Vital signs reviewed: Yes - General General: Alert and oriented X 3, No acute distress - HEENT HEENT: Moist mucous membranes - Neck Neck: Supple, no meningeal sign - Cardiac Cardiac: RRR, Strong equal pulses - Respiratory Respiratory: No respiratory distress, Clear bilaterally - Abdomen Abdomen: Soft, Non tender, Non distended - Derm Derm: Warm and dry - Extremities Extremities: No edema - Neuro Neuro: Alert and oriented X 3 - Psych Psych: Normal mood, Normal affect Results - Vitals Vitals: Vital Signs - 24 hr 01/12/22 01/12/22 01/12/22 12:33 14:36 16:00 Temperature 36.5 C Heart Rate 100 87 86 Respiratory 16 17 17 Rate Blood Pressure 170/76 H 139/74 H 124/65 O2 Saturation 99 100 100 Oxygen O2 Source Room air - EKG (time done) 1250 Rate: Rate (enter#) (102) Rhythm: Sinus tachycardia Philip: Normal Intervals: Normal MT QRS: Normal Ischemia: Normal ST segments - Labs Labs: Laboratory Tests 01/12/22 01/12/22 01/12/22 12:43 12:43 14:56 WBC 5.0 RBC 4.60 Hgb 10.0 L Hct 30.4 L MCV 66.1 L MCH 21.7 L MCHC 32.9 RDW 18.1 H Plt Count 304 MPV 9.0 Neut # (Auto) 3.5 Lymph # (Auto) 1.0 L [place] # (Auto) 0.4 Eos # (Auto) 0.1 Baso # (Auto) 0.0 Absolute Nucleated RBC 0.00 Nucleated RBC % 0.0 Sodium 129 L 139 Potassium 5.6 H 4.0 Chloride 97 L 108 Carbon Dioxide 25 24 Anion Gap 7.0 7.0 BUN 39 H 37 H Creatinine 1.6 H 1.5 H Estimated GFR (MDRD) 33 L 35 L Glucose 590 H* 136 H Calcium 8.7 8.5 Total Bilirubin 0.4 AST 18 ALT 21 Alkaline Phosphatase 81 Total Protein 7.0 Albumin 3.6 Globulin 3.4 Albumin/Globulin Ratio 1.1 PD MEDICAL DECISION MAKING - ED course Complexity details: reviewed results, re-evaluated patient, considered differential, d/w patient ED course: Patient is a 61-year-old female, diabetic who presents to the emergency department after being told her potassium was high today. Her blood sugar was also very high. She was given IV fluids and insulin. Blood sugar decreased to a normal level. Patient is asymptomatic. Hyperkalemia resolved as well. Patient is well-appearing, nontoxic. Afebrile. We will have her continue her current medications at home and follow-up with her doctor regarding her diabetes. Patient counseled regarding signs and symptoms for which I believe and urgent re-evaluation would be necessary. Patient with good understanding of and agreement to plan and is comfortable going home at this time This document was made in part using voice recognition software. While efforts are made to proofread this document, sound alike and grammatical errors may occur. Patient did have transient hypoglycemia prior to discharge. She ate, drank and the hypoglycemia resolved. She the ability to check her blood sugar at home and has someone to stay with her. Patient is comfortable going home at this time. Departure - Departure Disposition: Home, Self Care Clinical Impression: Hyperglycemia, Hyperkalemia Chronic renal insufficiency Qualifiers: Chronic kidney disease stage: unspecified stage Qualified Code(s): N18.9 - Chronic kidney disease, unspecified Condition: Good Instructions: ED Hyperglycemia Diabetic Follow-Up: your,doctor this week [Other] Comments: It is important that you follow-up with your doctor for further care. Please return if you worsen. Your blood sugar was 590 today. We have gotten your blood sugar down to approximately 135. Your potassium is normal. You do have chronic renal insufficiency as well. Please contact your doctor tomorrow to discuss your diabetes.
[2022-01-12 13:09] LABS: ALBUMIN 3.6 g/dL (3.2-5.5); ALBUMIN/GLOBULIN RATIO 1.1 (1.0-2.2); BILIRUBIN,TOTAL 0.4 mg/dL (0.2-1.0); CALCIUM 8.7 mg/dL (8.5-10.3); CREATININE 1.6 mg/dL (0.4-1.0); POTASSIUM 5.6 mmol/L (3.5-5.0)
[2022-01-12] MEDS ORDERED: SODIUM CHLORIDE 0.9% 1,000 ML IV STA (13:19)
[2022-01-12] MEDS ORDERED: INSULIN REGULAR HUMAN 100 UNIT/1 ML 10 ML MDV SUBQ STA (13:19)
[2022-01-12] MEDS ORDERED: INSULIN REGULAR HUMAN 100 UNIT/1 ML 10 ML MDV IVP STA (14:18)
[2022-01-12 15:16] LABS: CALCIUM 8.5 mg/dL (8.5-10.3); CREATININE 1.5 mg/dL (0.4-1.0)
[2022-01-12 16:39] VITALS: BP 124/67
[2022-01-12 20:07] LABS: ESTIMATED AVERAGE GLUCOSE 260 mg/dL (70-100); HEMOGLOBIN A1c% 10.7 % (4.27-6.07)
== END 2022-01-12 16:39 | disposition home or self-care (01) ==
LOC: ED 12:29
DX: E87.5 Hyperkalemia (principal); E11.65 Type 2 diabetes mellitus with hyperglycemia; Z79.84 Long term (current) use of oral hypoglycemic drugs; I10 Essential (primary) hypertension
CPT/HCPCS: 36415; 80048; 80053; 83036; 85025; 93005; 96360; 99283; 99284; J1815